=== PATIENT | male | born 1960 | race Caucasian/White ===

== ENCOUNTER 2017-01-24 11:40 | Emergency (ER) | payer OTHER ==
[~2017-01-24] VITALS: Ht 175.3 cm; Wt 90.7 kg
--- NOTE | ~2017-01-24 | EKG ---
[address] [place] [address] ELECTROCARDIOGRAM REPORT Name: MATTHEW ESCALANTE [id number] Admission: 01/24/17 Attend Phys: Discharge: 01/24/17 Date of : 64 Report #: [id number] THIS REPORT FOR: //name// [facility] ED Test Date: 2017-01-24 Test Time: 12:21:50 Pat Name: MATTHEW ESCALANTE Department: Room: Gender: M Weigher And Charger: [id number] : 1960 Requested By: Michoacano Coleman Order Number: [id number] MD: Kun Murillo Measurements Intervals [place] Rate: 80 P: 36 UT: 176 QRS: 54 QRSD: 91 T: 40 QT: 358 QTc: 413 Interpretive Statements Sinus rhythm Normal tracing No previous ECG available for comparison Electronically Signed On 01-25-2017 8:54:40 CDT by Kun Murillo [email or web address] <ELECTRONICALLY SIGNED> By: Kun Murillo MD, MERGED WITH [facility] 01/25/17 0854 1221 1221 Kun Murillo MD, FAC /EPI
[~2017-01-24 11:40] MED LIST: ASPIR 8181 M1 PO; ASPIR 8181 MG PO; COLACE100 MG PO; COREG6.25 MG PO; DILAUDID 2 MG TA2 MG PO; FLEXERIL PO; FLOMAX0.4 MG PO; HYDROCODONE-AP1 EAC6 PO; LISINOPRIL5 MG PO; MIRALAX17 GM PO; NEURONTIN 300300 M1 PO; NITROGLYCERIN0.4 MG SUBLING; NORVASC5 MG PO; PEPCID20 MG PO; PLAVIX 75 MG TA75 M1 PO; ZOCOR20 MG PO
[2017-01-24 13:42] LABS: HEMOGLOBIN 20.6 gm/dL (14.0-18.0); MANUAL DIFF YES; MCH 31.6 pg (26.0-34.0); MCHC 34.3 % (28.0-37.0); MCV 92.2 fL (80.0-100.0); RDW 13.6 % (10.5-14.5); WBC 2.7 thou/uL (4.0-11.0)
[2017-01-24 13:47] LABS: ATYPICAL LYMPHS 2 %; METAMYELOCYTES 1 %; TOTAL CELL COUNT 100
[2017-01-24 13:48] LABS: ANISOCYTOSIS SLIGHT; POLYCHROMASIA OCCASIONAL
[2017-01-24 13:52] LABS: ANION GAP 7 mmol/L (7-16); BUN 16 mg/dL (7-18); CHLORIDE 106 mmol/L (98-107); CO2 25 mmol/L (21-32); CREATININE 1.1 mg/dL (0.7-1.3); POTASSIUM 4.3 mmol/L (3.5-5.1); SODIUM 138 mmol/L (136-145)
[2017-01-24 13:53] LABS: ALBUMIN 3.7 g/dL (3.4-5.0); CALCIUM 9.1 mg/dL (8.5-10.1); GLUCOSE 121 mg/dL (74-106); TOTAL BILIRUBIN 0.3 mg/dL (<0.1-1.0); TOTAL PROTEIN 7.3 g/dL (6.4-8.2); TROPONIN-I < 0.04 ng/mL (<0.04-0.07)
[2017-01-24 13:54] LABS: ALKALINE PHOSPHATASE 80 U/L (46-116); SGOT 32 U/L (15-37); SGPT 44 U/L (30-65)
[2017-01-24 14:02] LABS: PLATELET COUNT 87 thou/uL (150-400)
[2017-01-24 14:15] LABS: URINE BILIRUBIN NEGATIVE (Negative); URINE BLOOD NEGATIVE (Negative); URINE COLOR YELLOW; URINE GLUCOSE-RANDOM* NEGATIVE (Negative); URINE KETONES NEGATIVE (Negative); URINE LEUKOCYTES-REFLEX NEGATIVE (Negative); URINE PROTEIN (DIPSTICK) NEGATIVE (Negative); URINE UROBILINOGEN 0.2 E.U./dl (0.2-1.0)
[2017-01-24] MEDS ORDERED: HYDROCODONE-AP1 EAC6 PO (15:17)
== END 2017-01-24 15:58 | disposition home or self-care (01) ==
LOC: ER 11:40
PROVIDERS: Physician Assistant
DX: D72.819 Decreased white blood cell count, unspecified (principal); R10.9 Unspecified abdominal pain; I25.2 Old myocardial infarction; I10 Essential (primary) hypertension; Z87.440 Personal history of urinary (tract) infections; Z96.0 Presence of urogenital implants; Z86.718 Personal history of other venous thrombosis and embolism; Z87.891 Personal history of nicotine dependence

== ENCOUNTER → 2018-10-09 | Outpatient (CLI) | payer OTHER ==
--- NOTE | 2018-10-09 11:32 | NUR ---
ACCESSED PT LEFT CHEST PORT WITH 1INCH NEEDLE FOR CT CONTRAST. USED STERILE PROCEDURE, GAINED BLOOD RETURN.
== END ==
LOC: CAT 10:38 → LABMALL 10:38 → CAT 14:38
DX: C34.90 Malignant neoplasm of unspecified part of unspecified bronchus or lung (principal); J84.10 Pulmonary fibrosis, unspecified; K76.9 Liver disease, unspecified; R59.0 Localized enlarged lymph nodes; N52.9 Male erectile dysfunction, unspecified; M79.10 Myalgia, unspecified site

== ENCOUNTER → 2018-12-10 | Outpatient (CLI) | payer OTHER | LOC: CAT 09:07 | DX: C34.90 Malignant neoplasm of unspecified part of unspecified bronchus or lung (principal); K42.9 Umbilical hernia without obstruction or gangrene; J98.11 Atelectasis; K76.0 Fatty (change of) liver, not elsewhere classified; K76.9 Liver disease, unspecified ==

== ENCOUNTER → 2018-12-31 | Outpatient (CLI) | payer OTHER | LOC: MRI 07:01 | DX: K76.9 Liver disease, unspecified (principal) ==

== ENCOUNTER → 2019-10-15 | Outpatient (CLI) | payer OTHER | LOC: LABMALL 11:08 | DX: I10 Essential (primary) hypertension (principal) ==

== ENCOUNTER → 2019-10-16 | Outpatient (CLI) | payer OTHER | LOC: CAT 09:20 | PROVIDERS: ATTEND Internal Medicine Hematology & Oncology | DX: C34.31 Malignant neoplasm of lower lobe, right bronchus or lung (principal); R91.1 Solitary pulmonary nodule; J98.4 Other disorders of lung ==

== ENCOUNTER → 2019-11-19 | Outpatient (CLI) | payer OTHER | LOC: MRI 11:18 → EDSTATUS 14:47 | PROVIDERS: ATTEND Internal Medicine Hematology & Oncology | DX: C34.90 Malignant neoplasm of unspecified part of unspecified bronchus or lung (principal); R93.5 Abnormal findings on diagnostic imaging of other abdominal regions, including retroperitoneum ==

== ENCOUNTER → 2019-11-26 | Outpatient (CLI) | payer OTHER ==
[~2019-11-26] VITALS: Ht 167.6 cm; Wt 97.2 kg
[~2019-11-26] MED LIST changes: +CEFDINIR300 MG PO; +LEXAPRO20 MG PO; +NORCO 7.5-3251 EACH PO; +OMEPRAZOLE 20 M20 M1 PO; +ONDANSETRON HCL8 MG PO; +OXYCODONE HCL 55 MG PO; +PLAVIX 75 MG TA75 MG PO; +PROAIR HFA8.5 GM INH; +ZYPREXA 10 MG T10 MG PO
[2019-11-26 09:13] LABS: ABSOLUTE NEUTROPHILS 3.2 thou/uL (1.4-8.2); BASOPHILS 1.2 % (0.0-2.0); EOSINOPHILS 1.8 % (0.0-3.0); HEMATOCRIT 42.4 % (42.0-52.0); LYMPHOCYTES 17.9 % (24.0-44.0); MCH 31.2 pg (26.0-34.0); MCHC 33.1 g/dL (28.0-37.0); MCV 94.4 fL (80.0-100.0); MONOCYTES 7.3 % (1.0-8.0); PLATELET COUNT 230 thou/uL (150-400); POLYS 71.8 % (36.0-66.0); RBC 4.49 mil/uL (4.50-6.00); RDW 14.4 % (10.5-14.5); WBC 4.5 thou/uL (4.0-11.0)
[2019-11-26 09:20] VITALS: BP 123/85
[2019-11-26 09:21] LABS: CALCIUM 8.7 mg/dL (8.5-10.1); CREATININE 1.2 mg/dL (0.7-1.3)
[2019-11-26 09:29] LABS: ALBUMIN 3.3 g/dL (3.4-5.0); MAGNESIUM 2.1 mg/dL (1.8-2.4); TOTAL BILIRUBIN 0.3 mg/dL (0.2-1.0); TOTAL PROTEIN 6.8 g/dL (6.4-8.2)
[2019-11-26 11:26] VITALS: BP 123/85
--- NOTE | 2019-11-26 14:30 | NUR ---
HERE FOR DAY 1, CYCLE 1 OF CHEMO FOR RECURRENT SMALL CELL LUNG CANCER. HAD THOROUGH TEACHING DONE WITH THE [facility] LEARNING TECHNOLOGIES SPECIALIST YESTERDAY VIA TELECONFERENCE. TEACHING REVIEWED, INFO GIVEN. PT DEMONSTRATES GOOD UNDERSTANDING. HAD SIMILAR CHEMO 2 YEARS AGO (CREDIT RISK MANAGER 16 AND ETOPOSIDE). THIS TIME TECENTRIQ IS ADDED. EMPHASIZED NEED TO WATCH FOR AND REPORT ANY SIDE EFFECTS ASSOCIATED WITH THIS NEW IMMUNOLOGIC DRUG WELL THE CHEMO DRUGS. PT HAS BEEN DYSPNEIC ON EXERTION WITH WET SOUNDING AUDIBLE BREATH SOUNDS WHEN EXERTED ALTHOUGH LUNGS HAVE ONLY FAINT CRACKES THROUGHOUT WHEN AUSCULTATED. NO OTHER CONCERNS NOTED. TOLERATED CHEMO ORDERED WITHOUT INCIDENT, NO S/S ANY REACTION OTHER THAN A TIGHTNESS FELT IN HIS HEAD FOR A SHORT WHILE WITH THE CYNVANTI IV PUSH. THIS FEELING DID PASS. FREQUENT TRIPS TO THE BATHROOM TO VOID WITH LARGE VOLUME OF FLUIDS GIVEN. PORT WAS ACCESSED PRIOR WITHOUT DIFFICULTY, HAD GOOD BLOOD RETURN THROUGHOUT AND LEFT ACCESSED FOR DAYS 2 AND 3. PT SCHEDULED TO RETURN AGAIN TOMORROW AT 1200 AND SAT AT 0900. DISMISSED IN STABLE CONDITION. PRECHEMO LABS WERE WNL AND FAXED TO DR. WYNNE.
== END ==
LOC: OPONC 08:28
PROVIDERS: ATTEND Internal Medicine Hematology & Oncology
DX: Z51.11 Encounter for antineoplastic chemotherapy (principal); C34.90 Malignant neoplasm of unspecified part of unspecified bronchus or lung; R94.6 Abnormal results of thyroid function studies; Z79.899 Other long term (current) drug therapy

== ENCOUNTER 2019-11-27 21:27 | Inpatient (IN) | payer OTHER ==
[~2019-11-27] VITALS: Ht 167.6 cm; Wt 72.6 kg
--- NOTE | ~2019-11-27 | EMS ---
[facility] [address] [place] [address] EMS Patient Care Report Name: MATTHEW ESCALANTE Room #: REG ELZA Conde#: [id number] Admission: 11/27/19 Attend Phys: Discharge: Date of : 64 Report #: [id number] THIS REPORT FOR: //name// Report Transmitted: 11/27/2019 23:01 EMS Care Summary [facility] MED-ACT Incident [id number] @ 11/27/2019 20:39 Incident Location [address] [place] [address] Patient MATTHEW ESCALANTE Male, 59 Years 1960 Patient Address [address] [place] [id number] Patient History Chronic Obstructive Pulmonary Disease (COPD),Lung Cancer, Patient Allergies No known allergies, Patient Medications Clopidogrel, Lexapro, Simvastatin, Chief Complaint Fall, ankle injury Disposition Transported No Lights/[place] Dispatch Reason Falls Transported To [facility] Narrative [id number] dispatched to above address for Falls, Code 2 response. Upon arrival we found a 59 year old male laying on the driveway. he stated he was walking down the stairs outside when he missed the last step. He began to fall and heard a "pop" in his right ankle. Pt's right ankle is swollen and bruised. He reports [facility] [address] [place] [address] EMS Patient Care Report Name: MATTHEW ESCALANTE Room #: REG Amaya#: [id number] Admission: 11/27/19 Attend Phys: Discharge: Date of : 64 Report #: [id number] that the foot was "dangling" when he tried to lift his leg. Pt is a cancer pt. He underwent chemo yesterday, today and is scheduled for tomorrow. Assessment, vitals, IV-20g inserted in left hand, 10mL saline flush, Fentanyl-100mcg IV for pain, 10mL saline flush, splint and ice pack placed on right ankle, pt put on scoop stretcher, lifted to cot, scoop removed, loaded in ambulance. Vitals and 4-lead monitored throughout transport. Fentanyl-50mcg IV for pain, 10mL saline flush. Pt transported to [facility] per his request. He arrived alert with stable vitals. Care transferred to RIDE OPERATOR in room 8. Initial Vitals @21:15P: 96,R: 18,SpO2: 95,SD Suspected: false @21:18P: 95,R: 18,BP: 121/76,Pain: 8/10,GCS: 15,SpO2: 96,Revised Trauma: 12, @20:48P: 95,R: 18,BP: 144/91,Pain: 10/10,GCS: 15,SpO2: 96,Revised Trauma: 12, Assessments @20:46MENTAL:No Abnormalities,SKIN:HEENT:Head/Face: No Abnormalities,Neck/Airway: No Abnormalities,LUNG SOUNDS:General: No Abnormalities,Left Upper: No Abnormalities,Right Upper: No Abnormalities,Left Lower: No Abnormalities,Right Lower: No Abnormalities,ABDOMEN:General: No Abnormalities,Left Upper: No Abnormalities,Right Upper: No Abnormalities,Left Lower: No Abnormalities,Right Lower: No Abnormalities,PELVIS//GI:No Abnormalities,EXTREMITIES:Right Leg: Other,Left Leg: Other,Left Arm: No Abnormalities,Right Arm: No Abnormalities,PULSE:NEURO:No Abnormalities, Impression Injury of Ankle Procedures @20:54Fentanyl - 100 Micrograms (mcg) - Intravenous (IV)Response: Improved@20:53Saline Lock 10cc (20 ga) Site: Hand-LeftResponse: UnchangedSucceeded@21:15Fentanyl - 50 Micrograms (mcg) - Intravenous (IV)Response: Improved@20:55Splint Fx/Disloc.Response: UnchangedSucceeded@20:55Ice PackResponse: ImprovedSucceeded@20:56Scoop StretcherResponse: Unchanged Timeline 20:37,Call Received 20:37,Psap Call 20:39,Dispatched 20:39,En Route 20:45,On Scene 20:46,At Patient 20:48,BP: 144/91 M,PULSE: 95,RR: 18 R,SPO2: 96 Ox,ETCO2: ,BG: ,PAIN: 10,GCS: [facility] [address] [place] [address] EMS Patient Care Report Name: MATTHEW ESCALANTE Room #: REG Amaya#: [id number] Admission: 11/27/19 Attend Phys: Discharge: Date of : 64 Report #: [id number] 15, 20:53,Saline Lock 10cc 20 ga Site: Hand-Left,Response: UnchangedSucceeded, 20:54,Fentanyl - 100 Micrograms (mcg) - Intravenous (IV),Response: Improved 20:55,Splint Fx/Disloc.,Response: UnchangedSucceeded, 20:55,Ice Pack,Response: ImprovedSucceeded, 20:56,Scoop Stretcher,Response: Unchanged 21:03,Depart Scene 21:15,Fentanyl - 50 Micrograms (mcg) - Intravenous (IV),Response: Improved 21:15,BP: / M,PULSE: 96,RR: 18 R,SPO2: 95 Ox,ETCO2: ,BG: ,PAIN: ,GCS: , 21:18,BP: 121/76 M,PULSE: 95,RR: 18 R,SPO2: 96 Ox,ETCO2: ,BG: ,PAIN: 8,GCS: 15, 21:20,At Destination 21:46,Call Closed Disclaimer v1.1 Copyright 2020 [employer] This EMS Care Summary contains data elements from the applicable legal record (which may be displayed differently). It is designed to provide pertinent information for the following purposes: continuity of care, clinical quality, and state data reporting. The complete legal record is available to ED staff and administrators of the receiving hospital in [employer] Patient Tracker. All data is provided "as is."
--- NOTE | ~2019-11-27 | O ---
[facility] [place] [address] OPERATIVE REPORT Name: MATTHEW ESCALANTE Room #: 447-P [facility] IN M.R.#: [id number] Admission: 11/28/19 Attend Phys: Monse Doss Discharge: Date of : 64 Report #: [id number] THIS REPORT FOR: cc: Nader Gibson MD, Neal A. MD Kneidel, Matthew T. MD ~ CC: Monse Gibson DATE OF SERVICE: 11/29/2019 PREOPERATIVE DIAGNOSIS: Left ankle trimalleolar fracture. POSTOPERATIVE DIAGNOSIS: Left ankle trimalleolar fracture. PROCEDURE: Open reduction and internal fixation of trimalleolar fracture with fixation of the posterior malleolar fracture. SURGEON: Dr. Barry Espinoza. FINANCIAL REPORT SERVICE SALES AGENT: Margaret Cassidy. ANESTHESIA: General. ESTIMATED BLOOD LOSS: Minimal. DRAINS: No drains. TOURNIQUET TIME: 45 minutes. DESCRIPTION OF PROCEDURE: The patient brought to the operating room where he was placed under general anesthesia. Once under adequate general anesthesia, his left lower extremity was prepped and draped in a sterile manner. The extremity was elevated, exsanguinated, tourniquet placed to 250 mmHg. A 10 cm incision over the lateral malleolus was then made. This was dissected down through the soft tissue to the fracture site, any hematoma was evacuated from the fracture site. There was some posterior comminution precluding a lag screw. Therefore, reduction was achieved with a bone reduction tenaculum and fixation achieved then with a 7-hole 1/3 tubular plate with 3 screws distal to the fracture and 3 screws proximal to the fracture site. Excellent fixation and alignment was achieved in this manner. We then proceeded medially and a 4 cm incision over the medial malleolar fracture was made. This was then dissected down through the soft tissue to the fracture site and hematoma was evacuated from the fracture site along with any soft tissue interposition. The fracture was then reduced with a bone reduction tenaculum and subsequently fixed with two 4.0 cannulated screws placed under fluoroscopic guidance. Excellent fixation [address] [address] OPERATIVE REPORT Name: MATTHEW ESCALANTE Room #: 447-P [facility] IN .R.#: [id number] Admission: 11/28/19 Attend Phys: Monse Doss Discharge: Date of : 64 Report #: [id number] and alignment was achieved as verified under fluoroscopy. Through the same incision, a bone reduction tenaculum was placed. To allow reduction of the posterior malleolar fracture a bone reduction tenaculum was placed and utilizing fluoroscopy for guidance, 2 anterior to posterior 4.0 cannulated screws were placed across the fracture site. Excellent reduction and alignment was achieved as verified under fluoroscopy. The wounds were then irrigated copiously and closed with 2-0 Vicryl in subcutaneous tissues and zainab were used for the skin. The wounds were dressed with Xeroform, 4 x 4s, and a sterile soft compressive dressing was placed. Tourniquet was let down at approximately 45 minutes. Toes were pink and warm with good capillary refill. There were no complications from the procedure. The patient tolerated the procedure well and went to the recovery room without incident. By: 0940 1011 Barry Espinoza MD /nt
--- NOTE | ~2019-11-27 | HC ---
[facility] [place] [address] CONSULTATION Name: MATTHEW ESCALANTE Room #: 210-P ADM IN M.R.#: [id number] Admission: 11/28/19 Attend Phys: Monse Doss Discharge: Date of : 64 Report #: [id number] THIS REPORT FOR: cc: Nader Gibson MD, Neal A. MD Al-Saurabh,Javier Lau MD ~ CC: Monse iGbson REASON FOR CONSULTATION: Acute kidney injury. REASON FOR PRESENTATION: Post-fall with a trimalleolar fracture. HISTORY OF PRESENT ILLNESS: This is a 59-year-old with past medical history of hypertension; hyperlipidemia; small lung cancer, recurrent. He is undergoing cisplatin, etoposide medical treatment. He presented after a fall and was found to have a trimalleolar fracture. He is not aware of any previous medical problems. On presentation, his creatinine was elevated. This mandated Nephrology consultation. The patient's creatinine in September of this year was actually 1.3. This has continued to rise and has gone up to 2.2 as of this morning. The patient does have history of kidney stones. He is currently being followed by Oncology. His most recent cisplatin was 3 days ago. He denies any urinary issues to suggest an obstruction. He is currently being evaluated by Oncological Service, Orthopedic Service. He is going to the OR today. I was consulted to manage his acute kidney injury. PAST MEDICAL HISTORY: 1. Small cell lung cancer post-chemotherapy. 2. Coronary artery disease. 3. Esophageal ulcer. 4. Shingles. 5. Kidney stones. 6. PE. 7. DVT. 8. Hyperlipidemia. PAST SURGICAL HISTORY: Right knee scoped. SOCIAL HISTORY: Denies drug or alcohol abuse. He is an ex-smoker. FAMILY HISTORY: Significant for coronary artery disease. No chronic kidney disease. ALLERGIES: None. MEDICATIONS: 1. Carvedilol. [facility] [address] [place] [address] CONSULTATION Name: AVAMATTHEW David Room #: 210-P [facility] IN [facility].#: [id number] Admission: 11/28/19 Attend Phys: Monse Doss Discharge: Date of : 64 Report #: [id number] 2. Simvastatin. 3. Aspirin. 4. Plavix. 5. Omeprazole. REVIEW OF SYSTEMS: GENERAL: No fever or chills. CARDIOVASCULAR: No chest pain or palpitation. PULMONARY: No cough or hemoptysis. GASTROINTESTINAL: No nausea or vomiting. GENITOURINARY: No frequency, no urgency. MUSCULOSKELETAL: As per the history of present illness. PHYSICAL EXAMINATION: VITAL SIGNS: Blood pressure is 144/82, pulse rate is 86. Temperature is 36.6. Respiratory rate is 16. HEAD AND NECK: No jugular venous distention. CHEST: No crackles. CARDIOVASCULAR: No rub detected. ABDOMEN: Soft, nontender. LOWER EXTREMITIES: Dressing applied over the right lower extremity from the foot all the way down to the ____ knee. LABORATORY DATA: Laboratory values reviewed. Most recent labs from yesterday, sodium is 140, potassium is 5.2, magnesium is 2.7, calcium is 8.1. White blood cell count is 12.5. COVID-19 is negative. ASSESSMENT AND PLAN: 1. Cisplatin-induced acute kidney injury. 2. Small cell lung cancer. 3. Hyperkalemia. 4. Hold on further cisplatin dosing. 5. Continue IV fluid. 6. Continue to monitor renal function. 7. Watch urine output. 8. We will continue to follow during his ____. By: 0823 0836 Javier Brenner MD /nt
[2019-11-27 21:29] VITALS: BP 121/74
[2019-11-27 21:50] VITALS: BP 95/54
[2019-11-27 23:52] LABS: HEMATOCRIT 38.7 % (42.0-52.0); MCH 31.8 pg (26.0-34.0); MCHC 33.7 g/dL (28.0-37.0); MCV 94.3 fL (80.0-100.0); RBC 4.1 mil/uL (4.50-6.00); RDW 14.9 % (10.5-14.5); WBC 11.7 thou/uL (4.0-11.0)
[2019-11-28] LABS: CALCIUM 8.1 mg/dL (8.5-10.1); CREATININE 1.8 mg/dL (0.7-1.3); POTASSIUM 4.9 mmol/L (3.5-5.1)
[2019-11-28 00:13] LABS: APTT 22.5 Seconds (24.5-32.8)
[2019-11-28 01:40] VITALS: BP 109/64
[2019-11-28 01:55] VITALS: BP 122/79
[2019-11-28 02:16] VITALS: BP 129/79
[2019-11-28 04:30] VITALS: BP 124/75
--- NOTE | 2019-11-28 04:33 | NUR ---
PT WAS ADMITTED TO THE UNIT FROM THE ER AT APPROX 0200 IN A STABLE CONDITION.ADMISSION HX,EDUCATION AND ASSESSMENT COMPLETED.PT'S R ANKLE WITH CAST COVERED WITH PATRICIA WRAP.PT NPO AT THIS TIME FOR A POSSIBLE SURGERY LATER IN THE DAY.ICE PACK TO HIS R ANKLE,ELEVATED WITH A PILLOW.PT STILL RECEIVING CHEMO TX,ON CHEMO PRECAUTIONS.PT RESTING ON HIS BED ATTHIS TIME.FALL PRECAUTIONS IN PLACE,CALL LIGHT WITHIN REACH.
[2019-11-28 08:49] LABS: HEMATOCRIT 39.6 % (42.0-52.0); HEMOGLOBIN 12.6 gm/dL (14.0-18.0); MCH 30.7 pg (26.0-34.0); MCHC 31.7 g/dL (28.0-37.0); MCV 96.8 fL (80.0-100.0); RBC 4.09 mil/uL (4.50-6.00); RDW 15.5 % (10.5-14.5); WBC 12.5 thou/uL (4.0-11.0)
[2019-11-28 08:59] LABS: CALCIUM 8.1 mg/dL (8.5-10.1); CREATININE 2.2 mg/dL (0.7-1.3); MAGNESIUM 2.7 mg/dL (1.8-2.4); POTASSIUM 5.2 mmol/L (3.5-5.1)
[2019-11-28 09:25] VITALS: BP 137/94
--- NOTE | 2019-11-28 09:30 | NUR ---
PT ADMITTED LAST EVENING FOR FX ANKLE, DUE FOR DAY #3 OF OUTPATIENT CHEMOTHERAPY TO BE ADMINISTERED BY THIS NURSE. ORTHO PA GAVE OK TO PROCEED TODAY WITH CHEMO, SURGERY PLANNED FOR TOMORROW. DR. WYNNE NOTIFIED AND GAVE OK TO PROCEED WITH DAY 3 OF CHEMO PLANNED, ORDERS ON CHART. HOSPITALIST NOTIFIED, SEEING PT AT THIS TIME. PHAMACY NOTIFIED; INPATIENT CHEMO APPROVED BY DIRECTOR. PT'S NURSE APPRISED AND STAFF GIVEN SAFE HANDLING EDUCATION WITH SAFE HANDLING PRECAUTIONS SIGN AND CART OUTSIDE PT'S ROOM. PT UPDATED ON PLAN AND IS AGREEABLE. WILL RETURN EARLY THIS AFTERNOON TO ADMINISTER.
[2019-11-28 13:16] VITALS: BP 147/85
--- NOTE | 2019-11-28 13:42 | NUR ---
DR. FRAZIER HERE NOW CONSULTING WITH PT. DAY #3 OF ETOPOSIDE STARTED AT THIS TIME VIA L WRIST PERIPHERAL IV SITE (NEW SITE STARTED IN THE NIGHT, PATENT, EXCELLENT BLOOD RETURN) PORT NO LONGER ACCESSED. SET TO INFUSE OVER 60 MIN. PREMEDS GIVEN.
--- NOTE | 2019-11-28 14:55 | NUR ---
COMPLETED ETOPOSIDE WITHOUT INCIDENT, FULL BAG INFUSED, IV SITE REMAINS PATENT. CHEMO INFUSION SET REMOVED, PT'S NURSE UPDATED THAT CHEMO COMPLETE AND ENTERED ROOM TO RESUME IV FLUIDS ORDERED (INTERRUPTED FOR ONE HOUR FOR CHEMO). PT LEFT IN STABLE CONDITION.
[2019-11-29] VITALS (8 sets, daily range): BP systolic 125–144; BP diastolic 75–93
--- NOTE | 2019-11-29 03:10 | NUR ---
ASSUMED PT CARE AT 1900. PT IS A&OX4 TONIGHT, VERY FRIENDLY. LUNG SOUNDS COURSE WITH CRACKLES AND WHEEZES. PAIN BEING MANAGED WITH IV PAIN MEDS, PT CALLS APPROPRIATELY. NPO SINCE MIDNIGHT. FLUIDS INFUSING PER ORDER. PT REFUSED GABAPENTIN, SAYS HE DOES NOT LIKE TO TAKE IT. NO COMPLAINTS AT THIS TIME, PT IS CURRENTLY RESTING IN BED WITH EYES CLOSED.
--- NOTE | 2019-11-29 10:44 | NUR ---
Assumed patient care at 0715. Vital signs stable, lung sounds coarse, ABD distended, BS x's 4. IV in left hand with Normal Saline at 100cc/hr. Patient was given Carvedilol with a sip of water. He was given Morphine 2mg per IV push at 0754 for severe right ankle pain. Patient left Unit for Surgery with Escort at 0810. Awaiting call from PACU.
[2019-11-29 10:45] LABS: BE(vivo) -6.1 mmol/L (-2 to +3); HCO3 24.2 mmol/L (22.0-26.0); PCO2 72.6 mmHg (35.0-45.0); PO2 225.3 mmHg (80.0-100.0); pH 7.141 (7.360-7.450); sO2 99.2 % (92.0-98.0)
[2019-11-29 12:37] LABS: BE(vivo) -4.8 mmol/L (-2 to +3); HCO3 20.6 mmol/L (22.0-26.0); PO2 81.4 mmHg (80.0-100.0); sO2 95.4 % (92.0-98.0)
--- NOTE | 2019-11-29 18:09 | NUR ---
PT TRANSFERED FROM [address] [place] [address]. HAD LEFT LEG SURGERY TODAY. CMS INTACT ON THE LEFT LEG. VSS. PT HAS BEEN SLEEPING ON AND OFF. CONTINOUS PULSE OX IN PLACE. SAT ABOVE 90'S ON 2L. DENIES HAVING PAIN. NO CONCERNS AT THIS TIME. WILL CONTINUE TO MONITOR.
[2019-11-30] VITALS: BP 121/84
--- NOTE | 2019-11-30 04:38 | NUR ---
ASSUMED PT CARE AT 1900, PT IS AWAKE, ALERT AND ORIENTEDX4, SR ON THE MONITOR, ASSESSMENTS CHARTED, CAST IN PLACE TO THE RIGHT LEG, NO NUMBNESS OR TINGLING REPORTED, C/O PAIN ON THE RIGHT LE, MEDICATION GIVEN WITH RELIEF REPORTED, MEDICATION ADMINISTERED PER JUL, VSS, O2 ON 2L NC, O2 SATS STABLE WILL CONTINUE TO MONITOR
[2019-11-30 05:31] VITALS: BP 121/85
[2019-11-30 08:42] LABS: HEMATOCRIT 36.3 % (42.0-52.0); HEMOGLOBIN 12.2 gm/dL (14.0-18.0); MCHC 33.6 g/dL (28.0-37.0); MCV 95.2 fL (80.0-100.0); RBC 3.81 mil/uL (4.50-6.00); RDW 14.5 % (10.5-14.5); WBC 6.3 thou/uL (4.0-11.0)
--- NOTE | 2019-11-30 08:51 | EKG ---
[facility] [address] [place] [address] ELECTROCARDIOGRAM REPORT Name: MATTHEW ESCALANTE Room #: 210-P ADM IN M.R.#: [id number] Admission: 11/28/19 Attend Phys: Nader Gibson MD Discharge: Date of : 64 Report #: [id number] THIS REPORT FOR: cc: Nader Gibson MD, Neal A. 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: [place] : 1960 Requested By: Ritika Zendejas Order Number: [id number] MD: Kun Murillo Measurements Intervals [place] Rate: 90 P: 39 [place]: 158 QRS: 61 QRSD: 85 T: 55 QT: 345 QTc: 422 Interpretive Statements Sinus rhythm Minimal diffuse ST segment elevation, consider early repolarization, pericarditis, or injury Baseline wander in lead(s) V2 Compared to ECG 01/24/2017 12:21:50 ST (T wave) deviation now present Electronically Signed On 11-30-2019 8:51:21 CDT by Kun Murillo [email or web address] <ELECTRONICALLY SIGNED> By: Kun Murillo MD, [facility] 11/30/19 0851 [id number] [id number] Kun Murillo MD, [facility] /EPI
[2019-11-30 09:02] LABS: ALBUMIN 3.1 g/dL (3.4-5.0); CALCIUM 8.2 mg/dL (8.5-10.1); CREATININE 1.3 mg/dL (0.7-1.3); MAGNESIUM 2.4 mg/dL (1.8-2.4); POTASSIUM 4.1 mmol/L (3.5-5.1); TOTAL BILIRUBIN 0.6 mg/dL (0.2-1.0); TOTAL PROTEIN 6.3 g/dL (6.4-8.2)
[2019-11-30 10:18] VITALS: BP 131/62
[2019-11-30] MEDS ORDERED: NORCO 7.5-3251 EACH PO (10:42)
--- NOTE | 2019-11-30 11:20 | NUR ---
ASSESSMENT CHARTED. PT ALERT AND ORIENTED. VSS. EVALUATED BY PT. CAST ON RIGHT LEG IN PLACE. CMS INTACT ON RIGHT LEG. SEEN BY DR. HORNE. ORDERS GIVEN TO DISCHARGE PT TO HOME. DISCHARGE INSTRUCTIONS GIVEN TO PT. PT VERBERLISED UNDERSTANDING.
--- NOTE | 2019-11-30 17:19 | NUR ---
Patient to dc home today with crutches. sp with therapy patient interested in purchasing a scooter. Gave patient information on rental/purchase of knee scooter. Patient admitted with Barbara maloney, He reports he is retired. he has current lung cancer and rec treatment as well. Patient wants to purchase a scooter so he can adapt it to be more comfortable. 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 Plan dc patient has information regarding scooter.
== END 2019-11-30 11:50 | disposition home or self-care (01) | DRG 492 ==
LOC: ER 21:27 → EROBS 11-28 00:57 → 2N 11-28 00:57 → EROBS 11-28 02:12 → 4S 11-28 02:47 → 2N 11-29 13:18
PROVIDERS: Emergency Medicine; Hospitalist; Internal Medicine; Nurse Practitioner Family; ADMIT Family Medicine; ATTEND Family Medicine
PROC: 2W3QX1Z Immobilization of Right Lower Leg using Splint (ICD-10-PCS; principal; 2019-11-28)
PROC: 3E0T3BZ Introduction of Anesthetic Agent into Peripheral Nerves and Plexi, Percutaneous Approach (ICD-10-PCS; 2019-11-29)
PROC: 0QSG04Z Reposition Right Tibia with Internal Fixation Device, Open Approach (ICD-10-PCS; 2019-11-29)
DX: S82.851A Displaced trimalleolar fracture of right lower leg, initial encounter for closed fracture (principal); J96.01 Acute respiratory failure with hypoxia; N17.9 Acute kidney failure, unspecified; C34.90 Malignant neoplasm of unspecified part of unspecified bronchus or lung; J81.1 Chronic pulmonary edema; E78.5 Hyperlipidemia, unspecified; I25.10 Atherosclerotic heart disease of native coronary artery without angina pectoris; G89.29 Other chronic pain; N40.0 Benign prostatic hyperplasia without lower urinary tract symptoms; T45.1X5A Adverse effect of antineoplastic and immunosuppressive drugs, initial encounter; J44.9 Chronic obstructive pulmonary disease, unspecified; M54.5 Low back pain; I10 Essential (primary) hypertension; E66.01 Morbid (severe) obesity due to excess calories; W10.8XXA Fall (on) (from) other stairs and steps, initial encounter; Y93.89 Activity, other specified; I25.2 Old myocardial infarction; Z87.891 Personal history of nicotine dependence; Z92.3 Personal history of irradiation; Z92.21 Personal history of antineoplastic chemotherapy; Z79.899 Other long term (current) drug therapy; Z79.82 Long term (current) use of aspirin; Z86.711 Personal history of pulmonary embolism; Z86.718 Personal history of other venous thrombosis and embolism; Z87.01 Personal history of pneumonia (recurrent); Z87.442 Personal history of urinary calculi; Y92.89 Other specified places as the place of occurrence of the external cause; Y99.8 Other external cause status; Z68.25 Body mass index [BMI] 25.0-25.9, adult; Z03.818 Encounter for observation for suspected exposure to other biological agents ruled out
CPT/HCPCS: 10081; 10195; 50101; 50341; 50343; 50386; 51122; 51131; 51277; 51412; 56524; 56525; 56667; 57091; 57180; 62110; 62900; 64039; 64043; 65131; 70005

== ENCOUNTER → 2019-11-27 | Outpatient (CLI) | payer OTHER ==
[~2019-11-27] VITALS: Ht 167.6 cm; Wt 97.2 kg
[~2019-11-27] MED LIST changes: -CEFDINIR300 MG PO; -NORCO 7.5-3251 EACH PO; -OXYCODONE HCL 55 MG PO
[2019-11-27 11:41] VITALS: BP 132/78
--- NOTE | 2019-11-27 12:12 | NUR ---
IN FOR DAY #2 OF CYCLE 1 CHEMOTHERAPY FOR SMALL CELL LUNG CA. PATIENT DENIED NAUSEA, FEVER, CHILLS. STATED HAD TROUBLE SLEEPING LAST NIGHT. IS PROBABLY FROM HIGH DOSE DECADRON. RECEIVED GOOD BLOOD RETURN FROM PORTACATH. DAY 2 ETOPOSIDE INFUSED WITH FILTER OVER 1 HOUR AND TOLERATED WELL. PORTACATH FLUSHED AND DEACCESSED. DISMISSED IN GOOD CONDITION. TO RETURN TOMORROW MORNING FOR DAY#3.
== END ==
LOC: OPONC 09:51
PROVIDERS: ATTEND Family Medicine
DX: Z51.11 Encounter for antineoplastic chemotherapy (principal); C34.90 Malignant neoplasm of unspecified part of unspecified bronchus or lung

== ENCOUNTER → 2019-12-01 | Outpatient (CLI) | payer OTHER ==
[~2019-12-01] MED LIST changes: +NORCO 7.5-3251 EACH PO
[2019-12-01 15:50] VITALS: BP 130/99
--- NOTE | 2019-12-01 15:50 | NUR ---
HERE FOR NEULASTA, DAY 6 OF THIS FIRST ROUND OF CHEMO. PT JUST DISMISSED FROM THE HOSPITAL YESTERDAY S/P FALL, FX R ANKLE/FOOT AND SURGERY. RT LOWER LEG/FOOT IN CAST. PT REPORTS PAIN BUT STATES IS MANAGING. DENIES N/V, FEVER/CHILLS. DISCUSSED ROLE OF NEULASTA IN SUPPORTING WBC'S AND INFECTION PREVENTION JUAN WITH THE RECENT SURGERY. PT AND VERBALIZE UNDERSTANDING. PT WILL RETURN AGAIN ON DEL FOR LABS THEN SEES THE DIGITAL MARKETING LEAD AT [facility] FOR F/U ON SATURDAY. DISMISSED POST INJECTION IN STABLE CONDITION. EMPHASIZED SAFETY AND FALL PREVENTION AT HOME.
== END ==
LOC: OPONC 11-28 10:41
PROVIDERS: ATTEND Internal Medicine Hematology & Oncology
DX: C34.90 Malignant neoplasm of unspecified part of unspecified bronchus or lung (principal)
CPT/HCPCS: 95112

== ENCOUNTER → 2019-12-02 | Outpatient (CLI) | payer OTHER ==
[~2019-12-02] MED LIST changes: +CEFDINIR300 MG PO; +CISPLATIN IV; +ETOPOPHOS100 MG IV; +NORCO 5-325 TA1 EAC2 PO; +OLANZAPINE10 M1 PO; +OXYCODONE HCL 55 MG PO; +TECENTRIQ1200 MG/20 IV
== END ==
LOC: LAB 10:04
PROVIDERS: ATTEND Nurse Practitioner
DX: C34.90 Malignant neoplasm of unspecified part of unspecified bronchus or lung (principal); R06.02 Shortness of breath

== ENCOUNTER → 2019-12-03 | Outpatient (CLI) | payer OTHER ==
[2019-12-03 13:50] VITALS: BP 117/78
[2019-12-03 14:45] LABS: CALCIUM 8.8 mg/dL (8.5-10.1); CREATININE 1.2 mg/dL (0.7-1.3); POTASSIUM 4.1 mmol/L (3.5-5.1); TOTAL BILIRUBIN 0.9 mg/dL (0.2-1.0); TOTAL PROTEIN 7.2 g/dL (6.4-8.2)
[2019-12-03 15:04] LABS: HEMATOCRIT 39.3 % (42.0-52.0); HEMOGLOBIN 13.1 gm/dL (14.0-18.0); MCH 31.5 pg (26.0-34.0); MCHC 33.3 g/dL (28.0-37.0); MCV 94.7 fL (80.0-100.0); PLATELET COUNT 136 thou/uL (150-400); RBC 4.15 mil/uL (4.50-6.00); RDW 14.8 % (10.5-14.5); WBC 2.3 thou/uL (4.0-11.0)
[2019-12-03 15:26] LABS: ABSOLUTE NEUTROPHILS 1.5 thou/uL (1.4-8.2); ANISOCYTOSIS 1+
--- NOTE | 2019-12-03 15:42 | NUR ---
IN FOR LAB DRAW 1 WEEK POST CHEMOTHERAPY. PATIENT STATED HE FELT GOOD. DENIED NAUSEA/VOMITING, FEVER/CHILLS. SOB NOTED WITH EXERTION. O2 SAT 95% ON RA AT REST. LEFT UPPER AND LOWER LOBES OF LUNGS CLEAR. RONCHI HEARD IN RIGHT LOWER LOBE WITH MILD WHEEZING IN RIGHTUPPER LOBE. USING KNEE WALKER. CAST TO LEG CLEAN, DRY, INTACT. TO RETURN IN ONE WEEK FOR LABS. DISMISSED IN STABLE CONDITION.
== END ==
LOC: OPONC 08:26
PROVIDERS: ATTEND Internal Medicine Hematology & Oncology
DX: C34.90 Malignant neoplasm of unspecified part of unspecified bronchus or lung (principal)

== ENCOUNTER 2019-12-07 15:17 | Inpatient (IN) | payer OTHER ==
[~2019-12-07] VITALS: Ht 167.6 cm; Wt 100.2 kg
[~2019-12-07 15:17] MED LIST changes: -CEFDINIR300 MG PO; -CISPLATIN IV; -ETOPOPHOS100 MG IV; -NORCO 5-325 TA1 EAC2 PO; -OLANZAPINE10 M1 PO; -OXYCODONE HCL 55 MG PO; -TECENTRIQ1200 MG/20 IV
[2019-12-07 15:22] VITALS: BP 111/85
[2019-12-07 16:29] LABS: HEMOGLOBIN 12.5 gm/dL (14.0-18.0); MCV 94.4 fL (80.0-100.0)
[2019-12-07 16:30] LABS: CREATININE 1.4 mg/dL (0.7-1.3); POTASSIUM 4.9 mmol/L (3.5-5.1)
[2019-12-07 16:31] LABS: HEMATOCRIT 37.7 % (42.0-52.0); MCH 31.3 pg (26.0-34.0); MCHC 33.2 g/dL (28.0-37.0); RDW 14.8 % (10.5-14.5); WBC 4.1 thou/uL (4.0-11.0)
[2019-12-07 16:38] LABS: ALBUMIN 2.9 g/dL (3.4-5.0); TOTAL BILIRUBIN 0.6 mg/dL (0.2-1.0); TOTAL PROTEIN 7.4 g/dL (6.4-8.2)
[2019-12-07 17:11] LABS: ABSOLUTE NEUTROPHILS 2.7 thou/uL (1.4-8.2); ANISOCYTOSIS 1+; NUCLEATED RBCS 2 /100WBC
[2019-12-07 17:12] LABS: POLYCHROMASIA SLIGHT
[2019-12-07 17:20] LABS: PLATELET COUNT 99 thou/uL (150-400)
[2019-12-07 18:01] LABS: URINE BILIRUBIN NEGATIVE (Negative); URINE BLOOD TRACE (Negative); URINE CLARITY CLEAR; URINE COLOR YELLOW; URINE GLUCOSE-RANDOM* NEGATIVE (Negative); URINE KETONES NEGATIVE (Negative); URINE LEUKOCYTES-REFLEX NEGATIVE (Negative); URINE NITRITE-REFLEX NEGATIVE (Negative); URINE PROTEIN (DIPSTICK) NEGATIVE (Negative); URINE SPECIFIC GRAVITY 1.025 (1.005-1.035)
[2019-12-07 23:56] VITALS: BP 136/83
[2019-12-08] VITALS (7 sets, daily range): BP systolic 126–162; BP diastolic 79–93
[2019-12-08 08:26] LABS: HEMATOCRIT 32.4 % (42.0-52.0); MCHC 33.8 g/dL (28.0-37.0); MCV 94.6 fL (80.0-100.0); RBC 3.43 mil/uL (4.50-6.00); WBC 5.5 thou/uL (4.0-11.0)
[2019-12-08 08:37] LABS: CALCIUM 8.4 mg/dL (8.5-10.1); CREATININE 1.2 mg/dL (0.7-1.3); POTASSIUM 4.1 mmol/L (3.5-5.1)
--- NOTE | 2019-12-08 09:41 | NUR ---
PT ADMITTED FROM ER AT APPROXIMATELY 0130. VSS .LOW GRADE TEMP. UNLABORED ON RA. LUNGS SOUND COARSE. HYDROCODONE GIVEN FOR C/O RIGHT LE PAIN. NS STARTED AT 126 ML HR ORDERED. ORIENTED PT TO RM .INSTRUCTED PT ON FALL PRECAUTIONS. HE HAD A FALL RECENTLY WHICH RESULTED IN RLE FX. COVID SWAB OBTAINED IN ER.
[2019-12-08] MEDS ORDERED: ASPIR 8181 M1 PO (11:12)
--- OUTSIDE RECORDS SUMMARY | 2019-12-08 14:21 | XMS REPORT | Summary of Care ---
Demographics + + + | Address | [address] | | | [place] [address] | + + + | Home Phone | | + + + | Preferred Language | Unknown | + + + | Marital Status | | + + + | Baptism Affiliation | Unknown | + + + | Race | White | + + + | Ethnic Group | Not or | + + + Author + + + | Author | [facility] | + + + | Organization | [facility] | + + + | Address | Unknown | + + + | Phone | Unavailable | + + + Support + + +---------+ + | Name | Relationship | Address | Phone | + + +---------+ + | Marlin | ECON | Unknown | | | Angelique | | | | + + +---------+ + Care Team Providers + +------+ + | Care Product Accountant Name | Role | Phone | + +------+ + | Pavel Medina LEAD CLINICAL RESEARCH COORDINATOR | PCP | | + +------+ + Encounter Details +------+---------+ + + + | Date | Type | Department | Care Team | Description | +------+---------+ + + + | 07/2 | Letter | [place] | Pavel Medina, | | | 06/08 | (Out) | Family [facility] | LEAD CLINICAL RESEARCH COORDINATOR [place] | | | [address] | | [address] | [facility] | | | | | [address] | [address] | | | | | [address] | [address] | | | | | [place] [address] | Drive, [address] | | | | | [phone] | [place], | | | | | | [place] [address] | | | | | | [phone] | | | | | | [phone] | | | | | | (Fax) | | +------+---------+ + + + Allergies + + +---------+--------+ + | Active Allergy | Reactions | Severit | Noted | Comments | | | | y | Date | | + + +---------+--------+ + | Aspirin | | | 09/16/ | | | | | | 2014 | | + + +---------+--------+ + | Influenza | | | 09/26/ | | | Vaccines | | | 2018 | | + + +---------+--------+ + | Wasp Venom | | | 09/16/ | | | Protein | | | 2014 | | + + +---------+--------+ + documented as of this encounter (statuses as of 12/08/2019) Medications + + +---------+--------+-----+-----+------+ | Medication | Sig | Dispens | Refill | Sta | End | Stat | | | | ed | s | rt | | us | | | | | | Ross | Ross | | | | | | | e | e | | + + +---------+--------+-----+-----+------+ | aspirin EC 81 | Take 81 mg by | | 0 | | | Acti | | MG tablet | mouth daily. | | | | | ve | + + +---------+--------+-----+-----+------+ | albuterol | INL 2 PFS PO Q 4 | | 0 | 06/ | | Acti | | (PROAIR HFA) 108 | TO 6 H PRN | | | 12/ | | ve | | (90 Base) | | | | 201 | | | | MCG/ACT inhaler | | | | 8 | | | + + +---------+--------+-----+-----+------+ | omeprazole | Take 1 capsule | 90 | 3 | 06/ | | Acti | | (PriLOSEC) 20 MG | (20 mg total) by | capsule | | 03/ | | ve | | capsule | mouth daily. | | | 201 | | | | | | | | 9 | | | + + +---------+--------+-----+-----+------+ | traZODone | Take 1 tablet | 90 | 3 | 06/ | | Acti | | (DESYREL) 100 MG | (100 mg total) | tablet | | 21/ | | ve | | tablet | by mouth | | | 201 | | | | | nightly. | | | 9 | | | + + +---------+--------+-----+-----+------+ | simvastatin | TAKE 1 TABLET | 90 | 1 | 04/ | 04/ | Acti | | (ZOCOR) 20 MG | (20 MG TOTAL) BY | tablet | | 16/ | 16/ | ve | | tablet | MOUTH DAILY | | | 202 | 202 | | | | | | | 0 | 1 | | + + +---------+--------+-----+-----+------+ | clopidogrel | TAKE 1 TABLET | 90 | 1 | 04/ | 04/ | Acti | | (PLAVIX) 75 MG | (75 MG TOTAL) BY | tablet | | 16/ | 16/ | ve | | tablet | MOUTH DAILY | | | 202 | 202 | | | | | | | 0 | 1 | | + + +---------+--------+-----+-----+------+ | carvedilol | TAKE 1 TABLET | 180 | 1 | 04/ | 04/ | Acti | | (COREG) 6.25 MG | (6.25 MG TOTAL) | tablet | | 16/ | 16/ | ve | | tablet | BY MOUTH 2 (TWO) | | | 202 | 202 | | | | TIMES A DAY | | | 0 | 1 | | + + +---------+--------+-----+-----+------+ | | take 1-2 tablet | | 0 | | | Acti | | HYDROcodone-acet | by oral route | | | | | ve | | aminophen | every 4 hours as | | | | | | | (NORCO) 5-325 MG | needed for pain | | | | | | | per tablet | | | | | | | + + +---------+--------+-----+-----+------+ documented as of this encounter (statuses as of 12/08/2019) Active Problems + + | Patient Care Coordination Note | + + | His works here | + + + + + | Problem | Noted Date | + + + | Depression | 05/28/2018 | + + + | Chemotherapy induced nausea and vomiting | 02/04/2018 | + + + | C. difficile colitis | 01/16/2018 | + + + + + | Overview: Last Assessment & Plan: C. difficile | | positive on PCR.Explains some of his symptoms.See if | | oncology wants to start Neulasta.Vancomycin orally | | started 01/16.Monitor stool output, oral intake | | closely.Hospital stay duration based on trends.Making | | progress day today. Possible discharge 01/18 if he | | can string the other a couple of good days and | | oncology is okay with him going home with such | | neutropenia. | + + + + + | Bicytopenia | 01/15/2018 | + + + + + | Overview: Last Assessment & Plan: Leukopenia and | | anemia, likely from chemo. Monitor.Given acute | | infection, see if oncology wants to try G-CSF. | |Given acute infection, see if oncology wants to try G-CSF. | + + + + + | Dysphagia | 01/15/2018 | + + + + + | Overview: Last Assessment & Plan: | | From radiation. 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 Continue IVF hydration | | Treating nasuea, vomiting | + + + + + | CAD (coronary artery disease) | 11/30/2017 | + + + + + | Overview: Last Assessment & Plan: | | Continue antiplatelet agents | + + + + + | Postobstructive pneumonia | 11/30/2017 | + + + + + | Overview: Last Assessment & Plan: CT chest: | | pleural effusion resolved and postobstructive area | | looks slightly improved, symptoms may be related to | | inflammationWill continue with broad spectrum | | antibiotics, de-escalate when ableSteroids added on | | 12/01 by oncologyDiscussed with nursing staff | + + + + + | Small cell lung cancer | 11/06/2017 | + + + + + | Overview: Last Assessment & Plan: [facility] Small cell | | lung cancer, limited stage recently completed | | radiation on 01/10/18, and cycle 3 chemo (Cisplatin | | and Etoposide) on 01/10/18. Oncology Consulted. | | Assistance appreciated. | + + documented as of this encounter (statuses as of 12/08/2019) Social History + +-------+---------+--------+------+ | Tobacco Use | Types | Packs/D | Years | Date | | | | ay | Used | | + +-------+---------+--------+------+ | Former Smoker | | | | | + +-------+---------+--------+------+ + +---+---+---+ | Smokeless | | | | | Tobacco: Never | | | | | Used | | | | + +---+---+---+ + + +---------+ + | Alcohol Use | Drinks/Week | oz/Week | Comments | + + +---------+ + | No | | | | + + +---------+ + + + + | Sex Assigned at | Date Recorded | | | | + + + | Not on file | | + + + + + + + | Job Start Date | Occupation | Industry | + + + + | Not on file | Not on file | Not on file | + + + + + + + + | Travel History | Travel Start | Travel End | + + + + + + | No recent travel history | | available. | + + documented as of this encounter Last Filed Vital Signs Not on filedocumented in this encounter Plan of Treatment + +---------+ + + | Health | Due | Last Done | Comments | | Maintenance | Date | | | + +---------+ + + | INFLUENZA | | | | | VACCINE | 020 | | | + +---------+ + + | COLONOSCOPY | | 04/19/2017 | | | | 027 | | | + +---------+ + + documented as of this encounter Results Not on filedocumented in this encounter Insurance + +------+ +------+-------+ +------+ | Payer | Bene | Subscrib | Effe | Phone | Address | Type | | | fit | er ID | ctiv | | | | | | Plan | | e | | | | | | / | | Date | | | | | | Grou | | s | | | | | | p | | | | | | + +------+ +------+-------+ +------+ | ELIZABETH | DOMINGO | [phone] | 05/20/ | | [address] | | COMMERCIAL | AN | [phone] | 2019 | | [phone] | | | | PRIM | | -Pre | | [place] | | | | E | | sent | | , [place] | | | | EMPL | | | | [id number] | | | | [employer] | | | | | | | | 'S | | | | | | | | EPO | | | | | | + +------+ +------+-------+ +------+ documented as of this encounter"
--- NOTE | 2019-12-08 17:00 | NUR ---
ASSUMED PATIENT CARE THIS SHIFT AT APPROXIMATELY 0700. PATIENT AWAKE ALERT ORIENTED THROUGHOUT SHIFT. NO S/S OF RESPIRATORY DISTRESS NOTED. PATIENT O2 SAT STABLE ON ROOM AIR. ORTHO AND ONCOLOGY CONSULT CALLED THIS SHIFT. SPOKE WITH LENS BLOCK GAUGER WITH [facility], STATES THEY WILL NOT SEE PATIENT UNTIL CLEARED FOR COVID. NO PLANS TO CUT OFF CAST, XRAY AND US TO RIGHT LEG THAT WAS DONE TODAY ARE NEGATIVE AND NO INTERVENTIONS NEEDED AT THIS TIME. RELAYED THIS INFO TO PATIENT AND COMMUNICATES UNDERSTANDING OF PLAN. PAIN MANAGED WITH NORCO PO X2 DOSES THIS SHIFT. TOLERATING DIET WITHOUT NAUSEA. NO FEVERS NOTED THIS SHIFT. AWAITING COVID RESULT, POSSIBLY WILL NOT RESULT UNTIL TOMORROW AM AND PATIENT AWARE.
--- NOTE | 2019-12-08 17:37 | NUR ---
INITIAL ASSESSMENT: Received consult for discharge planning. SW reviewed chart and spoke with nursing. Pt was admitted from home due to cough/dyspnea. Pt placed in Enhanced Isolation to r/o COVID-19. Pt's test is currently pending. Pt with hx of lung cancer with recent round of chemo. Pt had recent right foot fracture. Onc and ortho both consulted. SW placed call to pt's room. No answer. Per chart, pt is alert/orientated and lives at home with his . Pt has crutches from recent fracture. Pt is currently on IV abx. SW will follow up with pt at a later time. SW is following to assist as needed with discharge planning.
--- NOTE | 2019-12-08 18:41 | NUR ---
PAGED DR. HORNE TO CLARIFY DOSE OF LOVENOX, PATIENT PLT COUNT LOW AT 77, STATES THAT HE WOULD LIKE FOR PATIENT TO RECIEVE DOSE TONIGHT BECAUSE HE IS AT HIGH RISK FOR DVT, AND WILL REEVAL IN AM IF MED IS STILL NEEDED
--- NOTE | 2019-12-09 00:21 | NUR ---
ASSUMED CARE FOR THIS PT AT 1900, UPON INITIAL ASSESSMENT PT'S LUNG SOUNDS WERE COARSE THROUGHOUT, WHEN SPEAKING WITH THE PATIENT, PT HAD NO C/O PAIN, OR SOA AT THE TIME. LATER IN THE EVENING HYDROCODONE WAS PROVIDED PER PX OF 10/27. R LEG HAS GOOD CIRCULATION, CAP REFILL AT THE R GREAT TOE LESS THAN THREE SECONDS EVERY ASSSESSMENT. WARMTH SAME ABOVE THE KNEE SITE ON CAST. GOOD URINE OUTPUT SO FAR. WILL CONTINUE TO MONITOR FOR CHANGES IN STATUS.
[2019-12-09 05:20] VITALS: BP 133/87
[2019-12-09 07:26] VITALS: BP 157/96
--- NOTE | 2019-12-09 10:11 | NUR ---
COVID RESULT NEGATIVE THIS AM. CALLED ANAHI WEBSTER TO MAKE AWARE, STATES TO D/C PRECAUTIONS. CALLED DR. HORNE TO MAKE AWARE. AWAITING CALL BACK.
[2019-12-09 11:07] VITALS: BP 153/91
--- NOTE | 2019-12-09 15:10 | NUR ---
dr. dawkins called back, aware of negative result of covid, states to leave patient in CCTele status and ok with him to move off unit. powerhouse electrician aware and awaiting bed for transfer off unit.
[2019-12-09 15:19] VITALS: BP 172/85
--- NOTE | 2019-12-09 15:38 | NUR ---
patient blood pressure elevated at 172/85. called dr. dawkins for orders,see new orders for norvasc po now and daily
--- NOTE | 2019-12-09 16:11 | NUR ---
SW reviewed chart and spoke with nursing. Pt in Enhanced Isolation to r/o COVID-19. Test did come back negative. Pt is afebrile and not on O2. Pt is on IV abx. SW spoke with pt via phone. Introduced role of SW. Pt is alert/orientated x 4 and confirms he lives at home with his . 2 steps to enter their home. No steps inside. Pt states he was able to purchase a knee scooter for $50 online. Pt states his plan is to discharge home when medically stable. Pt does not anticipate having any discharge needs. SW is following to assist as needed with discharge planning.
--- NOTE | 2019-12-09 16:28 | NUR ---
ASSUMED PATIENT CARE THIS MORNING AT APPROXIMATELY 0700. MEDS AND ASSESSMENTS CHARTED. PATIENT WITH NO ACUTE RESPIRATORY DISTRESS NOTED THIS SHIFT, REMAINS ON ROOM AIR. BP ELEVATED BUT ALL OTHER VSS. MEDICATION ADDED BY MD FOR ELEVATED BP THIS SHIFT. PATIENT HAS TAKEN NORVASC BEFORE AND AWARE OF MEDICATION INDICATIONS AND SIDE EFFECTS. COVID RESULTED NEGATIVE X1. ROOF TECHNICIAN AND ID MD STATES NO NEED FOR REPEAT COVID TEST. PATIENT ASYMPTOMATIC. NO FEVERS THIS SHIFT. ISOLATION D/C'D THIS SHIFT. PATIENT TO BE MOVED TO [facility] WHEN ROOM AVALIABLE.
[2019-12-09 19:36] VITALS: BP 128/81
--- NOTE | 2019-12-09 22:12 | NUR ---
PT IS PLEASANT, NO SPECIFIC CONCERNS FROM THE PATIENT AT THIS TIME. PT'S R ANKLE CAST WAS ASSESSED BY THE RN, THE TEMPERATURE IS WARM TO THE TOUCH, CAPILLARY REFILL IS LESS THAN 3 SECONDS. LUNG SOUNDS ARE STILL COARSE WHICH IS RELATED TO THE LUNG CA, PT IS STILL AOX4. RN REQUESTED THAT PT REPORT ANY ABNORMALITIES OR CHANGES AND ASKED IF THERE WERE ANY CONCERNING CHANGES. PT STATED THAT THE GREATEST ISSUE FOR HIM RIGHT NOW IS THE BLOOD PRESSURE. AT THE FIRST VS CHECK THE PT'S BLOOD PRESSURE WAS IN THE 120s. NO OTHER CONCERNS FOR THE PT. BLOOD SUGAR WAS HIGH BUT WAS TREATED AND TEACHING FOR HYPOGLYCEMIA WAS GIVEN AND WAS ALERTED TO THE PT TO CALL OUT IF ANYTHING CHANGES WILL CONTINUE TO MONITOR
[2019-12-10 00:17] VITALS: BP 149/87
--- NOTE | 2019-12-10 04:32 | NUR ---
patients cares were assumed after a transfer from [facility]. patient was assessed and meds were passed, hourly rounds were made. my commit to sit conversation was about getting through cancer. 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 the bed remains in a low and locked position
[2019-12-10 04:36] VITALS: BP 144/77
[2019-12-10 05:55] LABS: HEMATOCRIT 31.7 % (42.0-52.0); HEMOGLOBIN 10.5 gm/dL (14.0-18.0); MCH 31.7 pg (26.0-34.0); MCV 95.8 fL (80.0-100.0); PLATELET COUNT 122 thou/uL (150-400); RBC 3.31 mil/uL (4.50-6.00); RDW 15.1 % (10.5-14.5); WBC 10.7 thou/uL (4.0-11.0)
[2019-12-10] MEDS ORDERED: NORVASC5 MG PO (07:24)
[2019-12-10] MEDS ORDERED: CEFDINIR300 MG PO (07:24)
[2019-12-10] MEDS ORDERED: OXYCODONE HCL 55 MG PO (07:25)
[2019-12-10 07:50] VITALS: BP 150/87
[2019-12-10 09:30] VITALS: BP 150/87
[2019-12-10 11:06] VITALS: BP 150/87
--- NOTE | 2019-12-10 11:51 | NUR ---
PT CARE ASSUMED AT 0700. ASSESSMENT CHARTED. MEDICATION CHARTED. PT TO XR FOR CHEST IN AM. RT ANKLE CAST. PORT FOR CHEMO ONLY. PT DISCHARGED TO HOME. IV'S D/C'D. TELEMETRY D/C'D.
[2019-12-10 13:47] LABS: ABSOLUTE NEUTROPHILS 8.8 thou/uL (1.4-8.2); METAMYELOCYTES 2 %; PLATELET ESTIMATE NORMAL
== END 2019-12-10 12:11 | disposition home or self-care (01) | DRG 871 ==
LOC: ER 15:17 → 3W 18:33 → EROBS 18:33 → 3W 12-08 00:30 → 2N 12-10 00:16
PROVIDERS: Internal Medicine Hematology & Oncology; Physician Assistant; ADMIT Family Medicine; ATTEND Family Medicine
DX: A41.9 Sepsis, unspecified organism (principal); J18.9 Pneumonia, unspecified organism; C34.90 Malignant neoplasm of unspecified part of unspecified bronchus or lung; J44.0 Chronic obstructive pulmonary disease with (acute) lower respiratory infection; R65.10 Systemic inflammatory response syndrome (SIRS) of non-infectious origin without acute organ dysfunction; I10 Essential (primary) hypertension; I25.10 Atherosclerotic heart disease of native coronary artery without angina pectoris; G89.29 Other chronic pain; M54.9 Dorsalgia, unspecified; D69.6 Thrombocytopenia, unspecified; N40.0 Benign prostatic hyperplasia without lower urinary tract symptoms; M79.10 Myalgia, unspecified site; Z20.828 Contact with and (suspected) exposure to other viral communicable diseases; I25.2 Old myocardial infarction; Z87.442 Personal history of urinary calculi; Z86.718 Personal history of other venous thrombosis and embolism; Z87.891 Personal history of nicotine dependence; Z82.49 Family history of ischemic heart disease and other diseases of the circulatory system; Z80.0 Family history of malignant neoplasm of digestive organs; Z92.3 Personal history of irradiation; Z86.711 Personal history of pulmonary embolism
CPT/HCPCS: 10879

== ENCOUNTER → 2019-12-18 | Outpatient (CLI) | payer OTHER ==
[~2019-12-18] MED LIST changes: +CEFDINIR300 MG PO; +OXYCODONE HCL 55 MG PO
[2019-12-18 15:08] LABS: HEMATOCRIT 42.9 % (42.0-52.0); HEMOGLOBIN 14.1 gm/dL (14.0-18.0); MCHC 32.9 g/dL (28.0-37.0); MCV 94.1 fL (80.0-100.0); PLATELET COUNT 556 thou/uL (150-400); RBC 4.56 mil/uL (4.50-6.00); RDW 15.3 % (10.5-14.5); WBC 7.2 thou/uL (4.0-11.0)
[2019-12-18 15:23] LABS: ALBUMIN 3.4 g/dL (3.4-5.0); CALCIUM 9.3 mg/dL (8.5-10.1); CREATININE 1.4 mg/dL (0.7-1.3); POTASSIUM 4.5 mmol/L (3.5-5.1); TOTAL BILIRUBIN 0.3 mg/dL (0.2-1.0); TOTAL PROTEIN 7.8 g/dL (6.4-8.2)
[2019-12-18 15:41] LABS: ABSOLUTE NEUTROPHILS 5.6 thou/uL (1.4-8.2); ANISOCYTOSIS 1+; LARGE PLATELETS OCCASIONAL; POLYCHROMASIA OCCASIONAL
== END ==
LOC: OPONC 08:35
PROVIDERS: ATTEND Internal Medicine Hematology & Oncology
DX: C34.90 Malignant neoplasm of unspecified part of unspecified bronchus or lung (principal)

== ENCOUNTER → 2019-12-25 | Outpatient (CLI) | payer OTHER ==
--- NOTE | 2019-12-25 12:57 | NUR ---
IN FOR LABS S/P CHEMOTHERAPY. [facility] LABS FROM [facility] WITHOUT DIFFICULTY. FLUSHED PORT WITH HEPARIN 500 UNITS AND DEACCESSED. TO RETURN NEXT SATURDAY FOR CYCLE 2 OG CHEMO. DISMISSED IN STABLE CONDITION.
[2019-12-25 12:59] LABS: ABSOLUTE NEUTROPHILS 4.6 thou/uL (1.4-8.2); BASOPHILS 2.3 % (0.0-2.0); EOSINOPHILS 0.2 % (0.0-3.0); HEMATOCRIT 39.5 % (42.0-52.0); HEMOGLOBIN 13.2 gm/dL (14.0-18.0); LYMPHOCYTES 12.8 % (24.0-44.0); MCH 31.5 pg (26.0-34.0); MCHC 33.3 g/dL (28.0-37.0); MCV 94.8 fL (80.0-100.0); MONOCYTES 8.2 % (1.0-8.0); PLATELET COUNT 353 thou/uL (150-400); POLYS 76.5 % (36.0-66.0); RBC 4.17 mil/uL (4.50-6.00); RDW 15.5 % (10.5-14.5)
[2019-12-25 13:23] LABS: ALBUMIN 3.5 g/dL (3.4-5.0); CALCIUM 8.7 mg/dL (8.5-10.1); CREATININE 1.3 mg/dL (0.7-1.3); POTASSIUM 4.4 mmol/L (3.5-5.1); TOTAL BILIRUBIN 0.5 mg/dL (0.2-1.0); TOTAL PROTEIN 7.3 g/dL (6.4-8.2)
== END ==
LOC: OPONC 11:28
PROVIDERS: ATTEND Internal Medicine Hematology & Oncology
DX: Z45.2 Encounter for adjustment and management of vascular access device (principal); C34.90 Malignant neoplasm of unspecified part of unspecified bronchus or lung

== ENCOUNTER → 2019-12-30 | Outpatient (CLI) | payer OTHER ==
[~2019-12-30] VITALS: Ht 167.6 cm; Wt 93.9 kg
[~2019-12-30] MED LIST changes: +CISPLATIN IV; +ETOPOPHOS100 MG IV; +OLANZAPINE10 M1 PO; +TECENTRIQ1200 MG/20 IV
[2019-12-30 09:11] LABS: ABSOLUTE NEUTROPHILS 3.8 thou/uL (1.4-8.2); BASOPHILS 0.9 % (0.0-2.0); EOSINOPHILS 1.1 % (0.0-3.0); HEMATOCRIT 38.3 % (42.0-52.0); HEMOGLOBIN 12.9 gm/dL (14.0-18.0); MCH 31.8 pg (26.0-34.0); MCHC 33.6 g/dL (28.0-37.0); MCV 94.5 fL (80.0-100.0); PLATELET COUNT 256 thou/uL (150-400); RBC 4.06 mil/uL (4.50-6.00); WBC 5.1 thou/uL (4.0-11.0)
[2019-12-30 09:15] VITALS: BP 125/81
[2019-12-30 09:30] LABS: CALCIUM 9.1 mg/dL (8.5-10.1); CREATININE 1.4 mg/dL (0.7-1.3); POTASSIUM 3.9 mmol/L (3.5-5.1)
[2019-12-30 09:36] LABS: ALBUMIN 3.5 g/dL (3.4-5.0); MAGNESIUM 1.8 mg/dL (1.8-2.4); TOTAL BILIRUBIN 0.4 mg/dL (0.2-1.0); TOTAL PROTEIN 7.3 g/dL (6.4-8.2)
[2019-12-30 13:00] VITALS: BP 135/81
--- NOTE | 2019-12-30 13:31 | NUR ---
HERE FOR DAY 1, CYCLE 2 OF CHEMO FOR SCLC: TECENTRIQ, CISPLAT, ETOPOSIDE. PT REPORTS DOING WELL, FEELING WELL. STATES LUNGS/BREATHING SO MUCH BETTER SINCE PNEUMONIA HAS CLEARED. SAW ORTHO WHO REMOVED MARISA AND PLACED A NEW CAST ON RT LEG. GETTING AROUND WELL WITH KNEE SCOOTER. DENIES ANY FEVER/CHILLS, N/V/DIARRHEA, BLOOD/MUCUS IN STOOLS, VISUAL DISTURBANCES OR OTHER COMPLAINTS. PORT ACCESSED WITH EASE, BRISK BLOOD RETURN. LABS CHECKED, OK'D FOR CHEMO TODAY. CHEMO GIVEN ORDERED, PT TOLERATING WELL, NO NOTED SIDE EFFECTS, VSS. SCHEDULE SET FOR RETURN THIS WEEK: ETOPOSIDE SAT/SAT, NEULASTA SAT; LABS EVERY SATURDAY; CYCLE 3 TO START ON 01/18. CT OF ABD 01/17. REVIEWED PT TEACHING. PT DEMONSTRATES GOOD UNDERSTANDING OF PLAN. ENCOURAGED TO MAKE F/U APPT WITH DR. [facility]. ENCOURAGED TO F/U WITH DR. HORNE WELL. PT IS NO LONGER TAKING AMLODIPINE--ENCOURAGED HIM TO CALL DR. HORNE TO VERIFY IF THIS IS CORRECT. ALSO ENCOURAGED PT TO ASK DR. WYNNE ABOUT HIS HEARING LOSS (LOSS OCCURRED PRIOR TO START OF THIS CHEMO COURSE). ALL THESE NOTES AND SCHEDULE GIVEN TO PT TO TAKE HOME TO HELP HIM REMEMBER AND TO SHARE WITH HIS WHO IS A NURSE.
--- NOTE | 2019-12-30 14:20 | NUR ---
COMPLETED CHEMO WITHOUT INCIDENT. PORT LEFT ACCESSED. DISMISSED IN STABLE CONDITION. WILL RETURN AT 0900 TOMORROW FOR DAY 2.
== END ==
LOC: OPONC 08:42
PROVIDERS: Internal Medicine Hematology & Oncology; ATTEND Family Medicine
DX: Z51.11 Encounter for antineoplastic chemotherapy (principal); C34.90 Malignant neoplasm of unspecified part of unspecified bronchus or lung

== ENCOUNTER → 2019-12-31 | Outpatient (CLI) | payer OTHER ==
[2019-12-31 13:13] VITALS: BP 116/77
--- NOTE | 2019-12-31 13:20 | NUR ---
IN FOR DAY 2 OF CYCLE 2 OF CHEMOTHERAPY. HAD BIG DAY YESTERDAY. STATED STARTING TO FEEL THE EFFECTS OF CHEMO, MEANING, RINGING IN EARS, FATIGUE, AND CHEMO BRAIN. PATIENT STATES THIS IS WHAT HE HAD WITH HIS PREVIOUS CHEMO REGIMEN 1-2 YEARS AGO. DENIED NAUSEA/VOMITING. IMPLANTED PORT ACCESSED YESTERDAY. RECEIVED GOOD BLOOD RETURN TODAY. DRESSING LOOSE SO CHANGED TO PORT. PREMEDS GIVEN. DAY 2 OF ETOPOSIDE INFUSED OVER ONE HOUR FOLLOWED BY A 50 ML NS FLUSH. TOLERATED WELL. SLEPT THROUGHOUT TREATMENT. HEPARIN LOCKED PORTACATH AND LEFT ACCESSED FOR DAY 3 TOMORROW. DISMISSED IN STABLE CONDITION.
== END ==
LOC: OPONC 08:52
PROVIDERS: ATTEND Internal Medicine Hematology & Oncology
DX: Z51.11 Encounter for antineoplastic chemotherapy (principal); C34.90 Malignant neoplasm of unspecified part of unspecified bronchus or lung

== ENCOUNTER → 2020-01-01 | Outpatient (CLI) | payer OTHER ==
[2020-01-01 09:31] VITALS: BP 138/76
--- NOTE | 2020-01-01 14:10 | NUR ---
IN FOR DAY 3 OF CYCLE 2 CHEMOTHERAPY. DENIED NAUSEA, FEVER, CHILLS, DIARRHEA. MAIN COMPLAINT IS FATIGUE. RECEIVED GOOD BLOOD RETURN FROM PORTACATH. PREMEDS GIVEN. INFUSED ETOPOSIDE OVER 1 HOUR AND TOLERATED WELL. HEPARIN LOCKED PORT AND DEACCESSED. TO RETURN TOMORROW FOR NEULASTA INJECTION. DISMISSED IN STABLE CONDITION.
== END ==
LOC: OPONC 08:49
PROVIDERS: ATTEND Internal Medicine Hematology & Oncology
DX: C34.90 Malignant neoplasm of unspecified part of unspecified bronchus or lung (principal)

== ENCOUNTER → 2020-01-02 | Outpatient (CLI) | payer OTHER ==
[~2020-01-02] MED LIST changes: +NORCO 5-325 TA1 EAC2 PO
[2020-01-02 12:43] VITALS: BP 106/68
--- NOTE | 2020-01-02 12:44 | NUR ---
IN FOR NEULASTA 24 HRS AFTER CHEMOTHERAPY COMPLETED. NEULASTA INJECTION GIVEN SUBQ IN LEFT ARM. PATIENT STATED FEELING OK EXCEPT FOR THE FATIGUE. VITAL SIGNS STABLE. TO RETURN SATURDAY FOR F/U CHEMO LABS. DISMISSED IN GOOD CONDITION.
== END ==
LOC: OPONC 12:00
PROVIDERS: ATTEND Internal Medicine Hematology & Oncology
DX: C34.90 Malignant neoplasm of unspecified part of unspecified bronchus or lung (principal); D70.1 Agranulocytosis secondary to cancer chemotherapy; T45.1X5A Adverse effect of antineoplastic and immunosuppressive drugs, initial encounter
CPT/HCPCS: 95112

== ENCOUNTER 2020-01-05 08:12 | Emergency (ER) | payer OTHER ==
[~2020-01-05] VITALS: Ht 167.6 cm; Wt 95.3 kg
[~2020-01-05 08:12] MED LIST changes: -NORCO 5-325 TA1 EAC2 PO
[2020-01-05 09:59] LABS: HEMATOCRIT 33.8 % (42.0-52.0); HEMOGLOBIN 11.4 gm/dL (14.0-18.0); MCH 32.1 pg (26.0-34.0); MCHC 33.9 g/dL (28.0-37.0); MCV 94.8 fL (80.0-100.0); PLATELET COUNT 120 thou/uL (150-400); RBC 3.56 mil/uL (4.50-6.00); RDW 15.5 % (10.5-14.5); WBC 10.1 thou/uL (4.0-11.0)
[2020-01-05 10:01] LABS: ANION GAP 8 mmol/L (7-16); BUN 22 mg/dL (7-18); CALCIUM 8.2 mg/dL (8.5-10.1); CHLORIDE 106 mmol/L (98-107); CO2 28 mmol/L (21-32); CREATININE 1.3 mg/dL (0.7-1.3); GLUCOSE 129 mg/dL (74-106); POTASSIUM 4.3 mmol/L (3.5-5.1); SODIUM 142 mmol/L (136-145)
[2020-01-05 10:12] LABS: ALBUMIN 3.1 g/dL (3.4-5.0); LIPASE 126 U/L (73-393); SGOT 12 U/L (15-37); SGPT 32 U/L (30-65); TOTAL BILIRUBIN 0.7 mg/dL (0.2-1.0); TOTAL PROTEIN 6.4 g/dL (6.4-8.2); TROPONIN-I <0.06 ng/mL (<0.06)
[2020-01-05 11:17] LABS: ABSOLUTE NEUTROPHILS 9.4 thou/uL (1.4-8.2)
[2020-01-05 11:18] LABS: ANISOCYTOSIS 1+
[2020-01-05 12:08] LABS: URINE BILIRUBIN NEGATIVE (Negative); URINE BLOOD 3+ (Negative); URINE CLARITY CLEAR; URINE COLOR YELLOW; URINE GLUCOSE-RANDOM* NEGATIVE (Negative); URINE KETONES NEGATIVE (Negative); URINE LEUKOCYTES-REFLEX NEGATIVE (Negative); URINE NITRITE-REFLEX NEGATIVE (Negative); URINE PROTEIN (DIPSTICK) NEGATIVE (Negative); URINE UROBILINOGEN 0.2 E.U./dl (0.2-1.0)
[2020-01-05 12:48] LABS: CASTS None Seen /LPF (None Seen); SQUAMOUS 0-3 Few /LPF (0-3); URINE RBC >20 Many /HPF (0-2); URINE WBC-REFLEX 0-5 Rare /HPF (0-5)
[2020-01-05 12:49] LABS: BACTERIA-REFLEX None Seen /HPF (None Seen); CRYSTALS None Seen /LPF (None Seen)
[2020-01-05] MEDS ORDERED: NORCO 5-325 TA1 EAC2 PO (13:09)
[2020-01-05 14:01] VITALS: BP 143/80
--- NOTE | 2020-01-05 16:07 | EKG ---
[facility] [place] [address] ELECTROCARDIOGRAM REPORT Name: MATTHEW ESCALANTE Room #: [facility].#: [id number] Admission: 01/05/20 Attend Phys: Discharge: 01/05/20 Date of : 64 Report #: [id number] THIS REPORT FOR: cc: Nader Gibson MD, Neal A. MD Couchonnal, Luis F. MD ~ THIS REPORT FOR: //name// [facility] ED Test Date: 2020-01-05 Test Time: 08:55:18 Pat Name: MATTHEW ESCALANTE Department: Room: Gender: Lav Crewman: esheets : 1960 Requested By: Jayme Mercer Order Number: [id number] : Errol Hurley Measurements Intervals Ramey Rate: 81 P: 55 WA: 151 QRS: 62 QRSD: 85 T: 57 QT: 338 QTc: 393 Interpretive Statements Sinus rhythm Minimal ST elevation, anterior leads Baseline wander in lead(s) II,III,aVF,V1,V2 Compared to ECG 11/27/2019 23:44:16 No significant changes Electronically Signed On 01-05-2020 16:06:48 CDT by Errol Hurley [email or web address] <ELECTRONICALLY SIGNED> By: Errol Hurley MD 01/05/20 1606 0855 Errol Hurley MD /EPI
== END 2020-01-05 14:01 | disposition home or self-care (01) ==
LOC: ER 08:12
PROVIDERS: Emergency Medicine
DX: R31.9 Hematuria, unspecified (principal); R10.11 Right upper quadrant pain; I25.2 Old myocardial infarction; Z87.891 Personal history of nicotine dependence; Z88.6 Allergy status to analgesic agent; Z88.7 Allergy status to serum and vaccine; Z91.030 Bee allergy status; Z79.82 Long term (current) use of aspirin; Z79.899 Other long term (current) drug therapy; Z87.442 Personal history of urinary calculi; Z86.718 Personal history of other venous thrombosis and embolism

== ENCOUNTER → 2020-01-07 | Outpatient (CLI) | payer OTHER ==
[~2020-01-07] MED LIST changes: +NORCO 5-325 TA1 EAC2 PO
[2020-01-07 09:10] VITALS: BP 115/88
[2020-01-07 10:10] LABS: HEMOGLOBIN 11.8 gm/dL (14.0-18.0)
[2020-01-07 10:13] LABS: MCH 32.1 pg (26.0-34.0); MCHC 33.8 g/dL (28.0-37.0); RBC 3.69 mil/uL (4.50-6.00); RDW 15.9 % (10.5-14.5)
[2020-01-07 10:23] LABS: WBC 1.2 thou/uL (4.0-11.0)
[2020-01-07 10:31] LABS: ALBUMIN 3.4 g/dL (3.4-5.0); CALCIUM 8.9 mg/dL (8.5-10.1); CREATININE 1.2 mg/dL (0.7-1.3); POTASSIUM 4.1 mmol/L (3.5-5.1); TOTAL BILIRUBIN 0.7 mg/dL (0.2-1.0); TOTAL PROTEIN 7.2 g/dL (6.4-8.2)
[2020-01-07 12:42] LABS: ABSOLUTE NEUTROPHILS 0.4 thou/uL (1.4-8.2); ATYPICAL LYMPHS 1 %; METAMYELOCYTES 1 %; NUCLEATED RBCS 1 /100WBC
[2020-01-07 12:44] LABS: ANISOCYTOSIS SLIGHT
[2020-01-07 12:45] LABS: PLATELET COUNT 83 thou/uL (150-400); POIKILOCYTOSIS SLIGHT
[2020-01-07 12:46] LABS: PLATELET ESTIMATE SLIGHTLY DECREASED
--- NOTE | 2020-01-07 14:11 | NUR ---
IN FOR 1ST WEEK POST CHEMO LAB. [facility] LAB FROM [facility]. PATIENT DENIED FEVER, CHLLS, NAUSEA, PAIN. STATED HE FEELS LIKE HE HAS A COLD. STATED GOOD APPETITE, SLEEPING WELL. PATIENT WENT TO ED ON SATURDAY THIS WEEK FOR SEVERE ABD PAIN. CT DONE WHICH DIDN'T SHOW ANY KIDNEY STONES OR GALL STONES. PATIENT STATED AFTER HE HAD 2 LITERS OF FLUID THE PAIN WENT AWAY AND HAS NOT COME BACK. CBC SHOWED PATIENT IS NEUTROPENIC WITH AN ANC OF 500. THIS RN NOTIFIED PATIENT OF FINDINGS AND DISCUSSED INFECTION PRECAUTIONS. PATIENT TO CALL IF HAS ANY FEVER OR CHILLS.
== END ==
LOC: OPONC 08:41
PROVIDERS: ATTEND Internal Medicine Hematology & Oncology
DX: C34.90 Malignant neoplasm of unspecified part of unspecified bronchus or lung (principal); E86.0 Dehydration

== ENCOUNTER → 2020-01-08 | Outpatient (CLI) | payer OTHER ==
[2020-01-08 13:39] LABS: HEMATOCRIT 33.5 % (42.0-52.0); HEMOGLOBIN 11.3 gm/dL (14.0-18.0); MCHC 33.6 g/dL (28.0-37.0); MCV 95.2 fL (80.0-100.0); RBC 3.52 mil/uL (4.50-6.00); RDW 15.7 % (10.5-14.5)
[2020-01-08 13:41] LABS: WBC 1.4 thou/uL (4.0-11.0)
[2020-01-08 13:49] LABS: ALBUMIN 3.2 g/dL (3.4-5.0); CALCIUM 8.6 mg/dL (8.5-10.1); CREATININE 1.1 mg/dL (0.7-1.3); MAGNESIUM 1.5 mg/dL (1.8-2.4); POTASSIUM 4.3 mmol/L (3.5-5.1); TOTAL BILIRUBIN 0.5 mg/dL (0.2-1.0)
[2020-01-08 14:25] LABS: ABSOLUTE NEUTROPHILS 0.7 thou/uL (1.4-8.2)
[2020-01-08 14:26] LABS: METAMYELOCYTES 4 %
[2020-01-08 14:27] LABS: ATYPICAL LYMPHS 4 %
[2020-01-08 14:28] LABS: ANISOCYTOSIS 1+; NUCLEATED RBCS 2 /100WBC
[2020-01-08 14:45] LABS: PLATELET COUNT 64 thou/uL (150-400)
[2020-01-08 15:35] VITALS: BP 98/69
[2020-01-08 15:46] LABS: URINE BILIRUBIN NEGATIVE (Negative); URINE BLOOD NEGATIVE (Negative); URINE CLARITY CLEAR; URINE COLOR YELLOW; URINE GLUCOSE-RANDOM* NEGATIVE (Negative); URINE KETONES NEGATIVE (Negative); URINE LEUKOCYTES-REFLEX NEGATIVE (Negative); URINE NITRITE-REFLEX NEGATIVE (Negative); URINE PROTEIN (DIPSTICK) NEGATIVE (Negative); URINE UROBILINOGEN 0.2 E.U./dl (0.2-1.0)
--- NOTE | 2020-01-08 18:04 | NUR ---
IN FOR IV HYDRATION FOR DEHYDRATION AND RT FLANK PAIN. LABS DRAWN FROM PORTACATH ORDERED. UA COLLECTED AND RESULTED. ALL LABS FAXED TO DR. WYNNE. CALLED CRITICAL RESULT LAB TO DR. WYNNE. ALSO REPORTED AUDIBLE WHEEZING AND CRACKLES TO RT UPPER AND LOWER LOBES. ORDERS RECEIVED AND LASIX GIVEN. FLANK PAIN MUCH BETTER BY THE END OF INFUSION. VOIDED APPROXIMATELY 1000 ML CLEAR YELLOW URINE. HEPARIN LOCKED PORTACATH AND DEACCESSED. DISMISSED IN STABLE CONDITION. INSTRUCTED PATIENT TO CALL IF PAIN RETURNS OR REPORT TO EMERGENCY ROOM. STATED UNDERSTANDING.
== END ==
LOC: OPONC 10:31
PROVIDERS: ATTEND Internal Medicine Hematology & Oncology
DX: E86.0 Dehydration (principal); R10.9 Unspecified abdominal pain
CPT/HCPCS: 95113

== ENCOUNTER → 2020-01-14 | Outpatient (CLI) | payer OTHER ==
[2020-01-14 09:30] VITALS: BP 130/73
[2020-01-14 09:47] LABS: HEMATOCRIT 33.2 % (42.0-52.0); MCH 31.8 pg (26.0-34.0); MCHC 33.3 g/dL (28.0-37.0); MCV 95.5 fL (80.0-100.0); PLATELET COUNT 136 thou/uL (150-400); RBC 3.47 mil/uL (4.50-6.00); RDW 16.3 % (10.5-14.5); WBC 5.6 thou/uL (4.0-11.0)
--- NOTE | 2020-01-14 10:01 | NUR ---
PT IN FOR CHEMO F/U LABS. PREFERRED PORT DRAW SO PORT ACCESSED WITHOUT DIFFICULTY, LABS DRAWN, PORT DEACCESSED. PT REPORTS FLANK PAIN HAS BEEN GONE SINCE LAST WEEKEND. STATES HE HAD A COUPLE PERIODS OF SLEEP/REST WHERE HE AWAKENED IN A DRENCHING SWEAT THEN HAD NO MORE PAIN. DENIES NOTED FEVER/CHILLS. EATING/DRINKING WELL. NO N/V/DIARRHEA. LOOKS WELL. DOES HAVE SOME MILD RHONCHI R LUNG BUT NOT LOUD PRIOR TO START OF CHEMO. PT FEELS LUNGS IN GENERAL ARE IMPROVING. STATES HE SPOKE WITH AFSANEH DISPATCH MACHINE RUNNER WITH DR. WYNNE THIS WEEK IN F/U AND WILL BE SPEAKING WITH HER AGAIN LATER THIS WEEK. SEES DR. WYNNE NEXT WEEK PRIOR TO CHEMO. GOT CAST OFF R FOOT, NOW IN A WALKING BOOT BUT IS STILL NON WT BEARING. WILL WATCH FOR LAB RESULTS. PT WOULD LIKE TO MOVE CT SCAN TO TOMORROW AND SEE IF HE CAN SEE DR. WYNNE ON SATURDAY OF NEXT WEEK SO WE CAN KEEP NEXT ROUND OF CHEMO STARTING 01/18. WILL LOOK INTO THIS FOR PT AFTER LABS RESULTED. PT DISMISSED IN STABLE CONDITION.
[2020-01-14 10:06] LABS: ALBUMIN 3.1 g/dL (3.4-5.0); CALCIUM 8.6 mg/dL (8.5-10.1); CREATININE 0.9 mg/dL (0.7-1.3); POTASSIUM 4.1 mmol/L (3.5-5.1); TOTAL BILIRUBIN 0.2 mg/dL (0.2-1.0); TOTAL PROTEIN 6.6 g/dL (6.4-8.2)
[2020-01-14 11:19] LABS: ABSOLUTE NEUTROPHILS 3.9 thou/uL (1.4-8.2); ANISOCYTOSIS 1+; METAMYELOCYTES 3 %; NUCLEATED RBCS 1 /100WBC
== END ==
LOC: OPONC 10:00
PROVIDERS: ATTEND Internal Medicine Hematology & Oncology
DX: C34.90 Malignant neoplasm of unspecified part of unspecified bronchus or lung (principal); I10 Essential (primary) hypertension

== ENCOUNTER → 2020-01-18 | Outpatient (CLI) | payer OTHER | LOC: CAT 10:06 | PROVIDERS: ATTEND Registered Nurse | DX: C34.90 Malignant neoplasm of unspecified part of unspecified bronchus or lung (principal); K76.0 Fatty (change of) liver, not elsewhere classified; I25.10 Atherosclerotic heart disease of native coronary artery without angina pectoris; J98.11 Atelectasis ==

== ENCOUNTER → 2020-01-19 | Outpatient (CLI) | payer OTHER ==
[~2020-01-19] VITALS: Ht 167.6 cm; Wt 94.3 kg
[2020-01-19 11:13] LABS: HEMATOCRIT 39.1 % (42.0-52.0); HEMOGLOBIN 13.2 gm/dL (14.0-18.0); MCH 32.1 pg (26.0-34.0); MCHC 33.7 g/dL (28.0-37.0); MCV 95.3 fL (80.0-100.0); PLATELET COUNT 559 thou/uL (150-400); RDW 17.1 % (10.5-14.5); WBC 6.2 thou/uL (4.0-11.0)
[2020-01-19 11:25] LABS: ALBUMIN 3.6 g/dL (3.4-5.0); CALCIUM 9.2 mg/dL (8.5-10.1); CREATININE 1.5 mg/dL (0.7-1.3); MAGNESIUM 2.3 mg/dL (1.8-2.4); POTASSIUM 4.6 mmol/L (3.5-5.1); TOTAL BILIRUBIN 0.3 mg/dL (0.2-1.0); TOTAL PROTEIN 7.6 g/dL (6.4-8.2)
[2020-01-19 11:50] VITALS: BP 106/82
[2020-01-19 12:08] LABS: ABSOLUTE NEUTROPHILS 4.8 thou/uL (1.4-8.2); ANISOCYTOSIS SLIGHT; METAMYELOCYTES 1 %
[2020-01-19 12:09] LABS: LARGE PLATELETS OCCASIONAL; POIKILOCYTOSIS SLIGHT
--- NOTE | 2020-01-19 16:36 | NUR ---
HERE FOR CYCLE 3, DAY 1 OF CHEMO FOR HIS SCLC. HAD CT SCAN DONE YESTERDAY, LABS DRAWN EARLY THIS MORNING THEN VISIT WITH DR. WYNNE PRIOR TO RETURN HERE AT 1140. OK'D BY DR. WYNNE AND MEETS LAB PARAMATERS TO PROCEED WITH CHEMO TODAY. PT REPORTS DOING WELL EXCEPT FATIGUED AND BEGINNING TO LOSE HIS APPETITE. DENIES ANY FEVERS OR S/S INFECTION. NO DIARRHEA OR BLOOD/MUCOUS NOTED IN STOOLS. DENIES VISUAL DISTURBANCE. NO ABD DISCOMFORT, CHEST PAIN OR ISSUES WITH LUNGS. STILL HAS SOME BILAT RALES BUT PT FEELS THEY ARE MUCH IMPROVED AND STATES THAT DR. WYNNE IS PLEASED WITH HIS PULMONARY STATUS. STILL HAS SOME TINNITUS WHICH HASN'T CHANGED FROM HIS BASELINE PRIOR TO START OF THIS CHEMO. PORT WAS ACCESSED YESTERDAY FOR CT SCAN. EXCELLENT BLOOD RETURN NOTED. PREMEDS AND PREHYDRATION GIVEN ORDERED FOLLOWED BY CHEMO ORDERED. PT TOLERATED WITHOUT INCIDENT. NO S/S REACTION TO ANY DRUGS. WILL LEAVE PORT ACCESSED FOR TOMORROW. PT REQUESTING ADDITIONAL FLUIDS EACH DAY TO HOPEFULLY PREVENT THIS ISSUE HE HAD CYCLE 2 WITH FLANK PAIN. ORDER WAS RECEIVED FROM DR. WYNNE FOR THIS.
== END ==
LOC: OPONC 08:51
PROVIDERS: ATTEND Internal Medicine Hematology & Oncology
DX: Z51.11 Encounter for antineoplastic chemotherapy (principal); C34.90 Malignant neoplasm of unspecified part of unspecified bronchus or lung

== ENCOUNTER → 2020-01-20 | Outpatient (CLI) | payer OTHER ==
[2020-01-20 09:00] VITALS: BP 127/78
--- NOTE | 2020-01-20 13:14 | NUR ---
PT HERE FOR DAY 2, CYCLE 3 OF CHEMO FOR HIS SCLC. PT ALSO REQUESTING FLUIDS TODAY. PORT STILL ACCESSED FROM 01/17, DRESSING INTACT, EXCELLENT BLOOD RETURN. 2 L NS GIVEN, ORAL PREMEDS GIVEN, ETOPOSIDE INFUSED OVER AN HOUR WITHOUT INCIDENT. PT REPORTS FEELING WELL TODAY. DOES HAVE SOME EXERTIONAL DYSPNEA WHICH HAS BEEN PRESENT SINCE HIS LUNG CANCER RECURRENCE. LUNGS SOUND MORE CLEAR TODAY BUT HAS SOME RHONCHI. VOIDING WELL. EATING WELL. NO CONCERNS NOTED. PORT LEFT ACCESSED FOR TOMORROW. DISMISSED IN STABLE CONDITION. SCHEDULED TO RETURN AT 0900 IN THE MORNING.
== END ==
LOC: OPONC 07:52
PROVIDERS: ATTEND Internal Medicine Hematology & Oncology
DX: Z51.11 Encounter for antineoplastic chemotherapy (principal); C34.90 Malignant neoplasm of unspecified part of unspecified bronchus or lung; R06.00 Dyspnea, unspecified

== ENCOUNTER → 2020-01-21 | Outpatient (CLI) | payer OTHER ==
[2020-01-21 09:07] VITALS: BP 138/78
--- NOTE | 2020-01-21 13:26 | NUR ---
IN FOR DAY 3 OF CHEMOTHERAPY. PATIENT DENIED FEVER/CHILLS, NAUSEA, PAIN. PREMEDS GIVEN. TOLERATED ETOPOSIDE WITHOUT INCIDENT. HYDRATION FLUIDS GIVEN ORDERED. HEPARIN LOCKED PORTACATH AND DEACCESSED. TO RETURN TOMORROW FOR NEULASTA AND HYDRATION FLUIDS. DISMISSED IN STABLE CONDITION.
== END ==
LOC: OPONC 08:28
PROVIDERS: ATTEND Family Medicine
DX: Z51.11 Encounter for antineoplastic chemotherapy (principal); C34.90 Malignant neoplasm of unspecified part of unspecified bronchus or lung

== ENCOUNTER → 2020-01-22 | Outpatient (CLI) | payer OTHER ==
[2020-01-22 09:23] VITALS: BP 119/77
--- NOTE | 2020-01-22 13:35 | NUR ---
IN FOR DAY 4, CYCLE 3 NEULASTA INJECTION AND HYDRATION FLUIDS. PATIENT DENIED NAUSEA, PAIN, MOUTH SORES,DIARRHA/CONSTIPATION. STATED SLEPT WELL LAST NIGHT. STATED DOES NOT FEEL HUNGRY BUT IS EATING ANYWAY. MAIN COMPLAINT IS FATIGUE. NEULASTA GIVEN IN RIGHT ARM. PATIENT REQUESTED TO RECEIVE 1 LITER OF NORMAL SALINE HE HAS HAD PLENTY OF FLUIDS THE LAST 3 DAYS AND IS VOIDING IN LARGE AMOUNTS. 1 LITER NS GIVEN IV. HEPARIN LOCKED PORTACATH AND DEACCESSED. TO RETURN NEXT SATURDAY FOR LABS AND IV FLUIDS IF NEEDED. DISMISSED IN STABLE CONDITION.
== END ==
LOC: OPONC 08:24
PROVIDERS: ATTEND Internal Medicine Hematology & Oncology
DX: C34.90 Malignant neoplasm of unspecified part of unspecified bronchus or lung (principal); R53.83 Other fatigue
CPT/HCPCS: 95112

== ENCOUNTER → 2020-01-27 | Outpatient (CLI) | payer OTHER ==
[2020-01-27 10:30] VITALS: BP 114/83
[2020-01-27 10:35] LABS: HEMATOCRIT 33.3 % (42.0-52.0); HEMOGLOBIN 11.4 gm/dL (14.0-18.0); MCH 32.9 pg (26.0-34.0); MCHC 34.3 g/dL (28.0-37.0); MCV 95.8 fL (80.0-100.0); PLATELET COUNT 195 thou/uL (150-400); RBC 3.47 mil/uL (4.50-6.00); RDW 16.5 % (10.5-14.5); WBC 2.5 thou/uL (4.0-11.0)
[2020-01-27 11:03] LABS: ALBUMIN 3.3 g/dL (3.4-5.0); CALCIUM 8.9 mg/dL (8.5-10.1); CREATININE 1.1 mg/dL (0.7-1.3); POTASSIUM 4.9 mmol/L (3.5-5.1); TOTAL BILIRUBIN 0.5 mg/dL (0.2-1.0); TOTAL PROTEIN 7.1 g/dL (6.4-8.2)
--- NOTE | 2020-01-27 11:13 | NUR ---
PT IN FOR CHEMO F/U LABS, ONE WEEK POST CHEMO. STATES HE IS DOING WELL. DENIES N/V/DIARRHEA OR BOWEL ISSUES, FEVER/CHILLS, VISION TROUBLE, PAIN OR ANY OTHER CONCERNS. LOOKS WELL. EATING WELL. STATES HE FEELS THIS FLUIDS HE RECEIVED LAST WEEK ON DAYS 2-4 REALLY SEEMED TO HELP HIM. WANTED LABS DRAWN FROM PORT SO ACCESSED, LABS DRAWN, DEACCESSED PRIOR TO DISMISSAL. DISMISSED IN STABLE CONDITION. SCHEDULED TO RETURN AGAIN NEXT WEEK ON SAT.
[2020-01-27 12:21] LABS: ABSOLUTE NEUTROPHILS 1.6 thou/uL (1.4-8.2); ANISOCYTOSIS SLIGHT; ATYPICAL LYMPHS 1 %; POIKILOCYTOSIS SLIGHT
== END ==
LOC: OPONC 01-26 12:40
PROVIDERS: ATTEND Internal Medicine Hematology & Oncology
DX: Z45.2 Encounter for adjustment and management of vascular access device (principal); C34.90 Malignant neoplasm of unspecified part of unspecified bronchus or lung

== ENCOUNTER → 2020-02-03 | Outpatient (CLI) | payer OTHER ==
[2020-02-03 09:10] VITALS: BP 118/78
--- NOTE | 2020-02-03 09:10 | NUR ---
HERE FOR WEEKLY LAB DRAW POST CHEMO. REPORTS DOING WELL. DENIES FEVER/CHILLS. EATING WELL. R FOOT HURTS AT TIMES. WEARS WALKING BOOT. ABLE TO DRIVE NOW WHICH HE IS THANKFUL FOR. FATIGUE AND ENERGY LEVEL IMPROVING. NO CONCERNS NOTED. LABS DRAWN PER PORT WITHOUT DIFFICULTY. PT DISMISSED POST. SEES DR. WYNNE ON 02/07. CYCLE 4, DAY 1 OF CHEMO NEXT WEEK WITH US SCHEDULED FOR 02/09/20.
[2020-02-03 09:23] LABS: HEMATOCRIT 34.6 % (42.0-52.0); HEMOGLOBIN 11.6 gm/dL (14.0-18.0); MCH 31.9 pg (26.0-34.0); MCHC 33.4 g/dL (28.0-37.0); MCV 95.4 fL (80.0-100.0); RBC 3.63 mil/uL (4.50-6.00); WBC 6.7 thou/uL (4.0-11.0)
[2020-02-03 09:44] LABS: ALBUMIN 3.4 g/dL (3.4-5.0); CALCIUM 8.9 mg/dL (8.5-10.1); CREATININE 1.2 mg/dL (0.7-1.3); POTASSIUM 4.6 mmol/L (3.5-5.1); TOTAL BILIRUBIN 0.3 mg/dL (0.2-1.0); TOTAL PROTEIN 7.2 g/dL (6.4-8.2)
[2020-02-03 11:12] LABS: ABSOLUTE NEUTROPHILS 5.1 thou/uL (1.4-8.2); METAMYELOCYTES 1 %; MYELOCYTES 2 %; NUCLEATED RBCS 3 /100WBC
[2020-02-03 11:13] LABS: ANISOCYTOSIS 1+
[2020-02-03 13:07] LABS: PLATELET COUNT 138 thou/uL (150-400)
== END ==
LOC: OPONC 08:50
PROVIDERS: ATTEND Internal Medicine Hematology & Oncology
DX: C34.90 Malignant neoplasm of unspecified part of unspecified bronchus or lung (principal)

== ENCOUNTER → 2020-02-09 | Outpatient (CLI) | payer OTHER ==
[~2020-02-09] VITALS: Ht 167.6 cm; Wt 95.7 kg
[2020-02-09 09:14] LABS: ABSOLUTE NEUTROPHILS 5.2 thou/uL (1.4-8.2); BASOPHILS 1.3 % (0.0-2.0); EOSINOPHILS 0.8 % (0.0-3.0); HEMATOCRIT 34.2 % (42.0-52.0); HEMOGLOBIN 11.3 gm/dL (14.0-18.0); LYMPHOCYTES 11.7 % (24.0-44.0); MCV 96.9 fL (80.0-100.0); MONOCYTES 10.5 % (1.0-8.0); PLATELET COUNT 306 thou/uL (150-400); POLYS 75.7 % (36.0-66.0); RBC 3.53 mil/uL (4.50-6.00); RDW 18.2 % (10.5-14.5); WBC 6.9 thou/uL (4.0-11.0)
[2020-02-09 09:15] VITALS: BP 113/72
[2020-02-09 09:20] LABS: CALCIUM 8.8 mg/dL (8.5-10.1); CREATININE 1.2 mg/dL (0.7-1.3); POTASSIUM 4.2 mmol/L (3.5-5.1)
[2020-02-09 09:26] LABS: ALBUMIN 3.6 g/dL (3.4-5.0); TOTAL BILIRUBIN 0.4 mg/dL (0.2-1.0); TOTAL PROTEIN 7.2 g/dL (6.4-8.2)
[2020-02-09 10:40] LABS: ANISOCYTOSIS 2+; PLATELET ESTIMATE NORMAL; POLYCHROMASIA SLIGHT
--- NOTE | 2020-02-09 15:00 | NUR ---
PT HERE FOR CYCLE 4, DAY 1 OF CHEMO. REPORTS FATIGUE BUT OTHERWISE DOING WELL. DENIES ANY N/V/DIARRHEA/COLITIS, S/S ENDOCRINOPATHIES, VISION ISSUES OR OTHER CONCERNS. RT ANKLE HEALING WELL PER PT, NOW FULL WT BEARING, BRACE IS OFF, MILD PAIN. REVIEWED PLAN WITH PT. THIS IS HIS LAST CYCLE PRIOR TO A PET SCAN TO DETERMINE FUTURE CARE. PORT ACCESSED, EXCELLENT BLOOD RETURN, LABS DRAWN AND CHECKED PRIOR TO CHEMO. PREMEDS GIVEN. CHEMO ADMINISTERED ORDERED WITHOUT INCIDENT. PT DISMISSED POST COMPLETION OF HYDRATION FLUIDS. PORT FLUSHED AND LEFT ACCESSED FOR THE NIGHT. PT REMINDED TO TAKE HIS ZYPREXA TONITE AND FOR THE FOLLOWING 3 NITES FOR NAUSEA PREVENTION. PT SCHEDULED TO RETURN AGAIN TOMORROW AT 0900.
== END ==
LOC: OPONC 08:03
PROVIDERS: ATTEND Internal Medicine Hematology & Oncology
DX: Z51.11 Encounter for antineoplastic chemotherapy (principal); C34.90 Malignant neoplasm of unspecified part of unspecified bronchus or lung

== ENCOUNTER → 2020-02-10 | Outpatient (CLI) | payer OTHER ==
[2020-02-10 09:15] VITALS: BP 102/75
--- NOTE | 2020-02-10 12:31 | NUR ---
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 PREMEDS GIVEN. PORT ACCESSED YESTERDAY WITH D/I DRESSING, EXCELLENT BLOOD RETURN. PT ONLY COMPLAINT IS THAT OF TERRIBLE FATIGUE. DENIES N/V/DIARRHEA, FEVER/CHILLS OR OTHER CONCERNS. EATING/DRINKING WELL. GETTING FLUIDS TODAY WELL PER PT REQUEST (SAME WITH CYCLE 3) TO PREVENT ISSUES HE HAD POST CYCLE #2. WILL RETURN AGAIN TOMORROW FOR DAY #3 OF ETOPOSIDE THEN SATURDAY FOR NEULASTA. WEEKLY LABS SCHEDULED AND HAD PET SCAN SCHEDULED FOR 02/16.
--- NOTE | 2020-02-10 14:21 | NUR ---
PT COMPLETED HYDRATION FLUIDS GIVEN PER HIS REQUEST/PRN ORDER. LUNGS SOUND A BIT COARSE POST BUT PT DENIES ANY DYSPNEA, STATES HE HAS HAD A COLD. PT'S LUNGS DO SOUND COARSE QUITE OFTEN. PT REPORTS FEELING FINE, JUST TIRED. DISMISSED. ADVISED PT TO CALL DR. WYNNE WITH CONCERNS IF ANY THIS EVENING. PT WILL RETURN IN THE MORNING FOR LAST DAY OF ETOPOSIDE.
== END ==
LOC: OPONC 07:47
PROVIDERS: ATTEND Internal Medicine Hematology & Oncology
DX: Z51.11 Encounter for antineoplastic chemotherapy (principal); C34.90 Malignant neoplasm of unspecified part of unspecified bronchus or lung

== ENCOUNTER → 2020-02-11 | Outpatient (CLI) | payer OTHER ==
[2020-02-11 09:36] VITALS: BP 130/83
--- NOTE | 2020-02-11 12:21 | NUR ---
IN FOR DAY #3 OF CHEMOTHERAPY FOR LUNG CA. PREMEDS GIVEN. RECEIVED GOOD BLOOD RETURN FROM PORTACATH PRIOR TO STARTING ETOPOSIDE. DENIED NAUSEA, DIARRHEA, CONSTIPATION, MUCOSITIS. MAIN COMPLAINT IS SEVERE FATIGUE. PATIENT STATED STILL HAS A PRETTY GOOD APPETITE AND LOST ONLY 2 POUNDS. TOLERATED INFUSION WITHOUT INCIDENT. GAVE JUST 1 LITER SALINE HYDRATION PATIENT HAD AUDIBLE WHEEZING AND CRACKLES IN RIGHT UPPER AND LOWER LUNGS. WILL REASSESS TOMORROW AND GIVE MORE FLUIDS IF NEEDED. HEPARIN LOCKED PORTACATH AND LEFT ACCESSED FOR POSSIBLE FLUIDS TOMORROW. DISMISSED IN STABLE CONDITION.
== END ==
LOC: OPONC 08:07
PROVIDERS: ATTEND Internal Medicine Hematology & Oncology
DX: Z51.11 Encounter for antineoplastic chemotherapy (principal); C34.90 Malignant neoplasm of unspecified part of unspecified bronchus or lung

== ENCOUNTER → 2020-02-12 | Outpatient (CLI) | payer OTHER ==
[2020-02-12 09:05] VITALS: BP 130/88
--- NOTE | 2020-02-12 13:51 | NUR ---
IN FOR DAY 4 OF CYCLE 4 FOR NEULASTA INJECTION AND HYDRATION FLUIDS FOR SMALL CELL LUNG CA. MAIN COMPLAINT IS SEVERE FATIGUE. DENIED NAUSEA, PAIN, FEVER, CHILLS. LUNGS NOT COARSE TODAY. NEULASTA GIVEN SUBQ IN RIGHT UPPER ARM. 1 LITER NS GIVEN PER PATIENT REQUEST.
== END ==
LOC: OPONC 08:34
PROVIDERS: ATTEND Internal Medicine Hematology & Oncology
DX: E86.0 Dehydration (principal); C34.90 Malignant neoplasm of unspecified part of unspecified bronchus or lung
CPT/HCPCS: 95112

== ENCOUNTER → 2020-02-17 | Outpatient (CLI) | payer OTHER ==
[2020-02-17 13:45] VITALS: BP 126/83
[2020-02-17 15:01] LABS: HEMATOCRIT 32.3 % (42.0-52.0); HEMOGLOBIN 10.8 gm/dL (14.0-18.0); MCH 32.6 pg (26.0-34.0); MCHC 33.5 g/dL (28.0-37.0); MCV 97.2 fL (80.0-100.0); PLATELET COUNT 135 thou/uL (150-400); RBC 3.32 mil/uL (4.50-6.00); RDW 17.3 % (10.5-14.5); WBC 2.7 thou/uL (4.0-11.0)
[2020-02-17 15:18] LABS: ALBUMIN 3.4 g/dL (3.4-5.0); CALCIUM 8.6 mg/dL (8.5-10.1); CREATININE 1.5 mg/dL (0.7-1.3); POTASSIUM 4.3 mmol/L (3.5-5.1); TOTAL BILIRUBIN 0.5 mg/dL (0.2-1.0); TOTAL PROTEIN 7.1 g/dL (6.4-8.2)
--- NOTE | 2020-02-17 15:25 | NUR ---
HERE FOR CHEMO F/U LABS, ONE WEEK POST TREATMENT. PT REPORTS INCREASING FATIGUE. DENIES N/V/DIARRHEA, FEVER/CHILLS. EATING WELL. PORT ACCESSED, LABS DRAWN, PT SENT TO RADIOLOGY FOR PET SCAN. PT RETURNED SHORTLY AFTER STATING PET SCAN CANCELED D/T HIGH BLOOD GLUCOSE (357 PER PT'S REPORT OF THEIR CHECK). OUR LABS LATER CONFIRMED WITH A [address] WYNNE NOTIFIED OF THE CANCELED PET SCAN, ELEVATED BG, C/O FATIGUE WELL SLIGHT RHONCHI IN ALL LUNG NGO (NOT UNUSUAL FOR THIS PATIENT). ADDITIONAL LABS ORDERED, PT SCHEDULED TO SEE DR. HORNE THIS 02/19/20, AT 0945 TO MANAGE GLUCOSE ISSUE. LABS AND NOTE FAXED TO DR. HORNE'S OFFICE. REVIEWED PLAN WITH PT WHO VERBALIZES UNDERSTANDING AND AGREEMENT. PORT DEACCESSED. PT DISMISSED. DR. WYNNE'S OFFICE NOTIFIED THAT THEY WOULD NEED TO RESCHEDULE PET SCAN. PT WILL RETURN HERE FOR REPEAT LABS AGAIN IN ONE WEEK.
[2020-02-17 15:31] LABS: ABSOLUTE NEUTROPHILS 2.1 thou/uL (1.4-8.2); ANISOCYTOSIS 1+
== END ==
LOC: OPONC 10:50 → PET 12:02 → OPONC 13:37
PROVIDERS: ATTEND Internal Medicine Hematology & Oncology
DX: Z45.2 Encounter for adjustment and management of vascular access device (principal); C34.90 Malignant neoplasm of unspecified part of unspecified bronchus or lung; R53.83 Other fatigue

== ENCOUNTER → 2020-03-02 | Outpatient (CLI) | payer OTHER ==
[2020-03-02 09:13] LABS: HEMATOCRIT 31.9 % (42.0-52.0); HEMOGLOBIN 10.7 gm/dL (14.0-18.0); MCH 32.9 pg (26.0-34.0); MCHC 33.7 g/dL (28.0-37.0); MCV 97.8 fL (80.0-100.0); PLATELET COUNT 412 thou/uL (150-400); RBC 3.26 mil/uL (4.50-6.00); RDW 18.3 % (10.5-14.5); WBC 6.1 thou/uL (4.0-11.0)
[2020-03-02 09:23] VITALS: BP 109/80
[2020-03-02 09:45] LABS: CREATININE 1.1 mg/dL (0.7-1.3)
[2020-03-02 09:51] LABS: ALBUMIN 3.5 g/dL (3.4-5.0); TOTAL BILIRUBIN 0.3 mg/dL (0.2-1.0); TOTAL PROTEIN 7.1 g/dL (6.4-8.2)
[2020-03-02 11:01] LABS: ABSOLUTE NEUTROPHILS 4.9 thou/uL (1.4-8.2); METAMYELOCYTES 1 %; MYELOCYTES 1 %
[2020-03-02 11:03] LABS: ANISOCYTOSIS 2+
[2020-03-02 11:04] LABS: POLYCHROMASIA OCCASIONAL
--- NOTE | 2020-03-02 12:10 | NUR ---
HERE FOR WEEKLY POST CHEMO LABS. MISSED LAST WEEK D/T ONSET OF A "TERRIBLE HEAD COLD". REPORTS COLD SYMPTOMS MUCH IMPROVED. DENIES FEVER/CHILLS, DYSPNEA, N/V. DID REPORT A COUGH WITH YELLOWISH SPUTUM PRODUCTION BUT STATES THAT IS MUCH BETTER. HAD A SORE THROAT WHICH HAS RESOLVED. BIGGES COMPLAINT NOW IS WATERY DIARRHEA WHICH HE REPORTS COMES OUT LIKE "TURNING ON THE FAUCET". DENIES MUCOUS OR BLOOD IN STOOL. C/O ABD DISCOMFORT, "LIKE I HAVE THE FLU". REPORTS EATING/DRINKING WELL. NO LOSS OF TASTE OR SMELL. NO ONE ELSE SICK IN THE HOME. PT STARTED ON METFORMIN ALMOST 2 WEEKS AGO AND FEELS THE TIMING IS SUCH THAT THE DIARRHEA COULD BE ATTRIBUTED TO THAT. FEELING EXHAUSTED AND REQUESTING FLUIDS. NOTIFIED DR. WYNNE PER NURSE, SEPTEMBER, WITH ORDERS RECEIVED TO GIVE FLUIDS AND GET A COVID TEST. PT ONLY WANTED ONE OF THE TWO LITERS SO ONE LITER GIVEN. PT REPORTED FEELING MUCH BETTER AFTER THE FLUIDS. NOTIFIED DR. HORNE OF THE DIARRHEA AND REQUEST BY DR. WYNNE FOR PT TO RECEIVE A COVID TEST. NURSE, TODD, IS SETTING UP COVID HERE AT [facility]. PT INSTRUCTED ON THE DRIVE THROUGH PROCESS AND PLANS TO GO THERE DIRECTLY. TODD ALSO SET UP A TELEMED VISIT FOR PT AND DR. HORNE WHICH WILL TAKE PLACE LATER TODAY OR IN THE MORNING. PT VERBALIZES UNDERSTANDING OF THE PLAN. DISMISSED IN STABLE CONDITION. SCHEDULED TO RETURN AGAIN NEXT WEEK FOR LABS.
== END ==
LOC: OPONC 02-24 08:44
PROVIDERS: ATTEND Internal Medicine Hematology & Oncology
DX: R19.7 Diarrhea, unspecified (principal); C34.90 Malignant neoplasm of unspecified part of unspecified bronchus or lung

== ENCOUNTER → 2020-03-02 | Outpatient (CLI) | payer OTHER | LOC: LAB 11:24 | PROVIDERS: ATTEND Family Medicine | DX: Z20.828 Contact with and (suspected) exposure to other viral communicable diseases (principal) ==

== ENCOUNTER → 2020-03-09 | Outpatient (CLI) | payer OTHER ==
[2020-03-09 09:10] VITALS: BP 122/81
[2020-03-09 09:36] LABS: ABSOLUTE NEUTROPHILS 3.6 thou/uL (1.4-8.2); BASOPHILS 2.1 % (0.0-2.0); EOSINOPHILS 0.9 % (0.0-3.0); HEMATOCRIT 35.9 % (42.0-52.0); HEMOGLOBIN 11.9 gm/dL (14.0-18.0); LYMPHOCYTES 15.8 % (24.0-44.0); MCH 32.9 pg (26.0-34.0); MCHC 33.2 g/dL (28.0-37.0); MCV 99.2 fL (80.0-100.0); MONOCYTES 11.7 % (1.0-8.0); PLATELET COUNT 369 thou/uL (150-400); POLYS 69.5 % (36.0-66.0); RBC 3.62 mil/uL (4.50-6.00); RDW 18.8 % (10.5-14.5); WBC 5.1 thou/uL (4.0-11.0)
[2020-03-09 10:05] LABS: ALBUMIN 3.9 g/dL (3.4-5.0); CALCIUM 9.7 mg/dL (8.5-10.1); CREATININE 1.4 mg/dL (0.7-1.3); POTASSIUM 4.3 mmol/L (3.5-5.1); TOTAL BILIRUBIN 0.3 mg/dL (0.2-1.0); TOTAL PROTEIN 7.4 g/dL (6.4-8.2)
[2020-03-09 11:04] LABS: ANISOCYTOSIS 2+
--- NOTE | 2020-03-09 12:53 | NUR ---
HERE FOR WEEKLY CHEMO F/U LABS. COMPLETED LAST COURSE OF CHEMO 3 WEEKS AGO ON 02/11/20. DENIES N/V, FEVER/CHILLS. DIARRHEA CONTINUES, STILL QUITE LOOSE BUT PT STATES IT IS GETTING A LITTLE BETTER. LESS ABD DISCOMFORT. DENIES MUCOUS OR BLOOD IN STOOLS. PT STATES HE DID NOT END UP RECEIVING A TELE-HEALTH VISIT FROM DR. HORNE LAST WEEK WHICH I THOUGHT WAS SET UP FOR PATIENT. WILL CALL DR. HORNE'S OFFICE AGAIN THIS WEEK TO SEE IF THAT CAN BE DONE TO HELP PT MANAGE DIARRHEA. COVID TEST WAS DONE POST VISIT LAST WEEK AND WAS NEGATIVE. FATIGUE CONTINUES AND IS ONE OF PATIENT'S BIGGEST COMPLAINTS. PT IS SCHEDULED FOR HIS PET SCAN NEXT WEEK ON SAT. MANAGING SUGARS NOW WITH METFORMIN AND IS CHECKING FSBG DAILY--STATE LEVELS RUN FROM 80s-120 DEPENDING ON WHAT HE EATS. PORT ACCESSED PER PT REQUEST, LABS DRAWN, DEACCESSED. PT STATES IS BEING TESTED FOR COVID D/T FEVER AND FATIGUE. ENCOURAGED PT TO KEEP QUARANTINED FROM HER. DISMISSED IN STABLE CONDITION. WILL RETURN NEXT WEEK.
== END ==
LOC: OPONC 08:56
PROVIDERS: ATTEND Internal Medicine Hematology & Oncology
DX: C34.90 Malignant neoplasm of unspecified part of unspecified bronchus or lung (principal)

== ENCOUNTER → 2020-03-16 | Outpatient (CLI) | payer OTHER ==
--- NOTE | 2020-03-16 14:45 | NUR ---
PT HERE TODAY FOR A PET SCAN AND CAME TO THE INFUSION CLINIC TO HAVE HIS PORT ACCESSED PRIOR TO THE PROCEDURE. PORT ACCESSED WITH EASE, EXCELLENT BLOOD RETURN. PT RETUREND POST PET SCAN FOR PORT FLUSH AND DEACCESS. PT REPORTS DOING WELL, FEELING WELL OVERALL EXCEPT FOR CONTINUED LOW ENERGY AND FATIGUE. SEES DR. WYNNE ON SATURDAY FOR PET SCAN REPORT AND F/U PLAN. DISMISSED IN STABLE CONDITION. SCHEDULED TO RETURN IN 4 WEEKS FOR PORT FLUSH.
== END ==
LOC: OPONC 13:02
PROVIDERS: ATTEND Internal Medicine Hematology & Oncology
DX: C34.90 Malignant neoplasm of unspecified part of unspecified bronchus or lung (principal)

== ENCOUNTER → 2020-03-29 | Outpatient (CLI) | payer OTHER ==
[~2020-03-29] VITALS: Ht 167.6 cm; Wt 96.2 kg
[2020-03-29 08:46] VITALS: BP 118/94
[2020-03-29 08:50] LABS: ABSOLUTE NEUTROPHILS 3.4 thou/uL (1.4-8.2); BASOPHILS 1.1 % (0.0-2.0); EOSINOPHILS 2.6 % (0.0-3.0); HEMATOCRIT 35.4 % (42.0-52.0); HEMOGLOBIN 11.6 gm/dL (14.0-18.0); MCH 32.8 pg (26.0-34.0); MCHC 32.8 g/dL (28.0-37.0); MCV 99.9 fL (80.0-100.0); MONOCYTES 8.2 % (1.0-8.0); PLATELET COUNT 231 thou/uL (150-400); POLYS 74.1 % (36.0-66.0); RBC 3.55 mil/uL (4.50-6.00); RDW 16.1 % (10.5-14.5); WBC 4.6 thou/uL (4.0-11.0)
[2020-03-29 08:54] LABS: CALCIUM 8.9 mg/dL (8.5-10.1); CREATININE 1.4 mg/dL (0.7-1.3); POTASSIUM 4.3 mmol/L (3.5-5.1)
[2020-03-29 09:00] LABS: ALBUMIN 3.6 g/dL (3.4-5.0); MAGNESIUM 1.6 mg/dL (1.8-2.4); TOTAL BILIRUBIN 0.3 mg/dL (0.2-1.0); TOTAL PROTEIN 6.9 g/dL (6.4-8.2)
--- NOTE | 2020-03-29 11:29 | NUR ---
IN FOR CHEMOTHERAPY, TECENTRIQ, DOSE 1 OF 4, [id number] FOR SMALL CELL LUNG CA. PATIENT STATED FEELING OK. DENIED PAIN, FEVER, CHILLS, DIARRHEA. MAIN COMPLAINT IS FATIGUE AND WEAKNESS. PATIENT STATES HE HAS HIS DAYS AND NIGHTS MIXED UP, SLEEPING DURING THE DAY AND THEN AWAKE AT NIGHT. STATED APPETITE GOOD. AFEBRILE. AUDIBLE WHEEZING HEARD HOWEVER LUNGS MOSTLY CLEAR. POONAM BLOOD FROM PORTACATH WITHOUT DIFFICULTY. PER PARAMETERS ALL LAB RESULTS WNL AND OK TO GIVE TECENTRIQ. PREMED OF ZOFRAN 16MG PO GIVEN 30 MINUTES PRIOR TO TECENTRIQ. TECENTRIQ INFUSED OVER 40 MINUTES AND TOLERATED WELL. PATIENT SLEPT THROUGHOUT INFUSION. HEPARIN LOCKED PORTACATH AND DEACCESSED. TO RETURN APR. FOR #2 INFUSION. DISMISSED IN GOOD CONDITION.
== END ==
LOC: OPONC 08:28
PROVIDERS: ATTEND Internal Medicine Hematology & Oncology
DX: Z51.11 Encounter for antineoplastic chemotherapy (principal); C34.90 Malignant neoplasm of unspecified part of unspecified bronchus or lung; R53.83 Other fatigue; R53.1 Weakness

== ENCOUNTER → 2020-04-19 | Outpatient (CLI) | payer OTHER | LOC: LAB 12:34 | PROVIDERS: ATTEND Pediatrics | DX: Z01.812 Encounter for preprocedural laboratory examination (principal); Z20.828 Contact with and (suspected) exposure to other viral communicable diseases ==

== ENCOUNTER → 2020-04-20 | Outpatient (CLI) | payer OTHER ==
[~2020-04-20] VITALS: Ht 167.6 cm; Wt 94.3 kg
[2020-04-20 09:00] VITALS: BP 115/78
[2020-04-20 09:33] LABS: ABSOLUTE NEUTROPHILS 2.1 thou/uL (1.4-8.2); BASOPHILS 1.1 % (0.0-2.0); EOSINOPHILS 1.4 % (0.0-3.0); HEMATOCRIT 38.3 % (42.0-52.0); HEMOGLOBIN 12.7 gm/dL (14.0-18.0); LYMPHOCYTES 23.6 % (24.0-44.0); MCH 32.4 pg (26.0-34.0); MCHC 33.3 g/dL (28.0-37.0); MCV 97.4 fL (80.0-100.0); MONOCYTES 11.3 % (1.0-8.0); PLATELET COUNT 248 thou/uL (150-400); POLYS 62.6 % (36.0-66.0); RBC 3.93 mil/uL (4.50-6.00); RDW 14.9 % (10.5-14.5); WBC 3.4 thou/uL (4.0-11.0)
[2020-04-20 09:52] LABS: ALBUMIN 3.6 g/dL (3.4-5.0); CALCIUM 9.1 mg/dL (8.5-10.1); CREATININE 1.3 mg/dL (0.7-1.3); POTASSIUM 3.8 mmol/L (3.5-5.1); TOTAL BILIRUBIN 0.3 mg/dL (0.2-1.0); TOTAL PROTEIN 7.1 g/dL (6.4-8.2)
--- NOTE | 2020-04-20 12:00 | NUR ---
PT HERE FOR CYCLE 6 OF TECENTRIQ. REPORTS DOING WELL. STILL HAS UPPER AIRWAY CRACKLES BUT LUNGS MOSTLY CLEAR. DOES HAVE MILD EXERTIONAL DYSPNEA. STILL C/O FATIGUE AFTER TREATMENTS. DENIES N/V/DIARRHEA, PAIN, FEVER OR S/S INFECTION. NO CONCERNS NOTED. PORT ACCESSED WITH EXCELLENT BLOOD RETURN, LABS DRAWN. TOLERATED TECENTRIQ WITHOUT INCIDENT. PT WALKED TO RADIOLOGY FOR CT SCAN THEN WILL DISMISS HOME. SCHEDULED TO RETURN AGAIN IN 3 WEEKS.
== END ==
LOC: OPONC 04-19 16:01
PROVIDERS: ATTEND Internal Medicine Hematology & Oncology
DX: Z51.11 Encounter for antineoplastic chemotherapy (principal); C34.90 Malignant neoplasm of unspecified part of unspecified bronchus or lung; R53.83 Other fatigue

== ENCOUNTER → 2020-04-22 | Outpatient (CLI) | payer OTHER ==
[~2020-04-22] VITALS: Ht 167.6 cm; Wt 96.2 kg
[2020-04-22 12:19] VITALS: BP 130/92
--- NOTE | 2020-04-27 10:07 | PATH ---
[facility] [address] [place] [address] PATHOLOGY RPT PROCEDURE Name: MATTHEW ESCALANTE Room #: REG [facility] LuisMabel#: [id number] Admission: 04/22/20 Date of : 64 Discharge: Report #: [id number] Path Case #: [id number] Note LCA Accession Number: [id number] TESTS RESULT FLAG UNITS REF RANGE LAB Clinician Provided Cytology Information No. of containers..01 Other (Miscellaneous) Source: RUL BRUSHING DIAGNOSIS: 02 RUL BRUSHING NEGATIVE FOR MALIGNANT EPITHELIAL CELLS. NORMAL BRONCHIAL CELLS ARE PRESENT. THIS INTERPRETATION INCLUDES EVALUATION OF A CELL BLOCK. Pathologist ICD10: 02 R91.8 Signed out by: 02 Nessa Carroll MD, Pathologist NPI- [id number] Performed by: 01 Ernestina Pickering Clock And Watch Hands Dipper ([facility]) Gross description: 01 20ML, RED, 1TP 1CB /LCS 04/25/2020 1837 Local FLAG LEGEND: L-Low Normal,H-High Normal,LL-Alert Low,HH-Alert High <-Panic Low,>-Panic High,A-Abnormal,AA-Critical Abnormal Performed at: [address] [place] [address] Timothy Herrera MD, [address] [address] Nessa Carroll MD, Specimen Comment: A courtesy copy of this report has been sent to [phone] Specimen Comment: [phone] Specimen Comment: Report sent to / DR HORNE Specimen Comment: A duplicate report has been generated due to demographic updates. Performed at: [address], [place], [place] [id number] MD Timothy Herrera MD Phone: [phone]
--- NOTE | 2020-04-27 10:07 | PATH ---
[facility] [address] [place] [address] PATHOLOGY RPT PROCEDURE Name: MATTHEW ESCALANTE Room #: REG [facility] Luis.#: [id number] Admission: 04/22/20 Date of : 64 Discharge: Report #: [id number] Path Case #: [id number] Note LCA Accession Number: [id number] TESTS RESULT FLAG UNITS REF RANGE LAB Clinician Provided Cytology Information No. of containers..01 Other (Miscellaneous) Source: RUL BAL DIAGNOSIS: 02 RUL BAL NEGATIVE FOR MALIGNANT EPITHELIAL CELLS. REACTIVE BRONCHIAL CELLS ARE PRESENT. PULMONARY MACROPHAGES (DUST CELLS) ARE PRESENT. THIS INTERPRETATION INCLUDES EVALUATION OF A CELL BLOCK. Pathologist ICD10: 02 R91.8 Signed out by: 02 Nessa Carroll MD, Pathologist NPI- [id number] Performed by: Blake Pickering, Mechanical Product Engineer ([facility]) Gross description: 01 20ML, RED, 1TP 1CB /LCS 04/25/2020 1839 Local FLAG LEGEND: L-Low Normal,H-High Normal,LL-Alert Low,HH-Alert High <-Panic Low,>-Panic High,A-Abnormal,AA-Critical Abnormal Performed at: [address] [place] [address] Timothy Herrera MD, [address] [address] Nessa Carroll MD, Specimen Comment: A courtesy copy of this report has been sent to [phone] Specimen Comment: [phone] Specimen Comment: Report sent to Specimen Comment: A duplicate report has been generated due to demographic updates. Performed at: [address], [place], [place] [id number] [address] [address] PATHOLOGY RPT PROCEDURE Name: AVAMATTHEW Room #: REG ERIK Conde#: [id number] Admission: 04/22/20 Date of : 64 Discharge: Report #: [id number] Path Case #: [id number] MD Timothy Herrera MD Phone: [phone]
--- NOTE | 2020-04-27 10:07 | PATH ---
[facility] [address] [place] [address] PATHOLOGY RPT PROCEDURE Name: MATTHEW ESCALANTE [facility] [id number] Admission: 04/22/20 Date of : 64 Discharge: Report #: [id number] Path Case #: [id number] Note LCA Accession Number: [id number] TESTS RESULT FLAG UNITS REF RANGE LAB Clinician Provided Cytology Information No. of containers..01 Other (Miscellaneous) Source: RUL FNA DIAGNOSIS: 02 RUL FNA NEGATIVE FOR MALIGNANT EPITHELIAL CELLS. NORMAL BRONCHIAL CELLS ARE PRESENT. THIS INTERPRETATION INCLUDES EVALUATION OF A CELL BLOCK. Pathologist ICD10: 02 R91.8 Signed out by: 02 Nessa Carroll MD, Pathologist NPI- [id number] Performed by: 01 Ernestina Pickering Lockstitch Cup Setter ([facility]) Gross description: 01 12ML, RED, 2 FX /LCS 04/25/2020 1829 Local FLAG LEGEND: L-Low Normal,H-High Normal,LL-Alert Low,HH-Alert High <-Panic Low,>-Panic High,A-Abnormal,AA-Critical Abnormal Performed at: [address] [place] [address] Timothy Herrera MD, [address] [address] Nessa Carroll MD, Specimen Comment: A courtesy copy of this report has been sent to [phone] Specimen Comment: [phone] Specimen Comment: Report sent to / DR HORNE Specimen Comment: A duplicate report has been generated due to demographic updates. Performed at: [address], [place], [place] [id number] MD Timothy Herrera MD Phone: [phone]
--- NOTE | 2020-04-27 11:07 | PATH ---
[facility] [address] [facility] [place] [address] PATHOLOGY RPT PROCEDURE Name: MATTHEW ESCALANTE Room #: REG [facility].#: [id number] Admission: 04/22/20 Date of : 64 Discharge: Report #: [id number] Path Case #: [id number] Note LCA Accession Number: [id number] TESTS RESULT FLAG UNITS REF RANGE LAB Clinician Provided Cytology Information No. of containers..01 Other (Miscellaneous) Source: RUL FNA SPOT 2 DIAGNOSIS: RUL FNA SPOT 2 INADEQUATE, INSUFFICIENT CELLS FOR STUDY. SPECIMEN CONSISTS OF BLOOD ONLY. THIS INTERPRETATION INCLUDES EVALUATION OF A CELL BLOCK. Pathologist ICD10: 02 R91.8 Signed out by: 02 Nessa Carroll MD, Pathologist NPI- [id number] Performed by: 01 Ernestina Pickering Mining Machinery Assembler ([facility]) Gross description: 01 12ML, RED, 1CB /LCS 04/25/2020 1842 Local FLAG LEGEND: L-Low Normal,H-High Normal,LL-Alert Low,HH-Alert High <-Panic Low,>-Panic High,A-Abnormal,AA-Critical Abnormal Performed at: [address] [place] [address] Timothy Herrera MD, [address] [address] Nessa Carroll MD, Specimen Comment: A courtesy copy of this report has been sent to [phone] Specimen Comment: [phone] Specimen Comment: Report sent to / DR HORNE Specimen Comment: A duplicate report has been generated due to demographic updates. Performed at: [address], [place], [place] [id number] MD Timothy Herrera MD Phone: [phone]
== END | disposition home or self-care (01) ==
LOC: PUL 09:50
PROVIDERS: ATTEND Pediatrics
DX: R91.8 Other nonspecific abnormal finding of lung field (principal); I10 Essential (primary) hypertension; E11.9 Type 2 diabetes mellitus without complications; E78.00 Pure hypercholesterolemia, unspecified; I25.2 Old myocardial infarction; Z87.442 Personal history of urinary calculi; Z85.118 Personal history of other malignant neoplasm of bronchus and lung; Z98.890 Other specified postprocedural states; Z79.899 Other long term (current) drug therapy; Z87.891 Personal history of nicotine dependence; Z87.19 Personal history of other diseases of the digestive system; Z86.718 Personal history of other venous thrombosis and embolism; Z79.01 Long term (current) use of anticoagulants; Z88.8 Allergy status to other drugs, medicaments and biological substances
CPT/HCPCS: 50010; 62110; 62900; 70005

== ENCOUNTER → 2020-05-11 | Outpatient (CLI) | payer OTHER ==
[2020-05-11 09:11] LABS: ABSOLUTE NEUTROPHILS 2.1 thou/uL (1.4-8.2); BASOPHILS 1.9 % (0.0-2.0); EOSINOPHILS 1.6 % (0.0-3.0); HEMATOCRIT 38.7 % (42.0-52.0); HEMOGLOBIN 12.8 gm/dL (14.0-18.0); LYMPHOCYTES 20.7 % (24.0-44.0); MCH 32.1 pg (26.0-34.0); MCHC 33.1 g/dL (28.0-37.0); MONOCYTES 11.4 % (1.0-8.0); PLATELET COUNT 241 thou/uL (150-400); POLYS 64.4 % (36.0-66.0); RBC 3.99 mil/uL (4.50-6.00); RDW 14.1 % (10.5-14.5); WBC 3.2 thou/uL (4.0-11.0)
[2020-05-11 09:13] VITALS: BP 120/89
[2020-05-11 09:29] LABS: ALBUMIN 3.3 g/dL (3.4-5.0); CALCIUM 8.9 mg/dL (8.5-10.1); CREATININE 1.2 mg/dL (0.7-1.3); MAGNESIUM 1.9 mg/dL (1.8-2.4); POTASSIUM 3.8 mmol/L (3.5-5.1); TOTAL BILIRUBIN 0.2 mg/dL (0.2-1.0)
[2020-05-11 09:44] LABS: TOTAL PROTEIN 6.7 g/dL (6.4-8.2)
--- NOTE | 2020-05-11 12:00 | NUR ---
HERE FOR DAY 1, CYCLE 7 OF CHEMO: TECENTRIQ. REPORTS DOING WELL, FEELING WELL OTHER THAN FATIGUE WHICH, IN GENERAL, IS IMPROVING PER PT. DENIES ANY NOTED SIDE EFFECTS FROM TREATMENT INCLUDING COLITIS, VISION CHANGES, ENDOCRINOPATHIES, N/V, INFECTION, ETC. JUST FATIGUE. PORT ACCESSED, EXCELLENT BLOOD RETURN BEFORE AND AFTER CHEMO GIVEN. LABS WERE DRAWN, PT MET CRITERIA FOR TREATMENT. TOLERATED WITHOUT INCIDENT. DISMISSED IN STABLE CONDITION. LAST TREATMENT SCHEDULED FOR 06/01/19.
== END ==
LOC: OPONC 08:49
PROVIDERS: ATTEND Internal Medicine Hematology & Oncology
DX: Z51.11 Encounter for antineoplastic chemotherapy (principal); C34.90 Malignant neoplasm of unspecified part of unspecified bronchus or lung; R53.83 Other fatigue

== ENCOUNTER → 2020-06-01 | Outpatient (CLI) | payer OTHER ==
[2020-06-01 09:17] LABS: ABSOLUTE NEUTROPHILS 3.5 thou/uL (1.4-8.2); EOSINOPHILS 0.8 % (0.0-3.0); HEMATOCRIT 41.2 % (42.0-52.0); HEMOGLOBIN 13.6 gm/dL (14.0-18.0); LYMPHOCYTES 17.8 % (24.0-44.0); MCH 31.5 pg (26.0-34.0); MCV 95.4 fL (80.0-100.0); MONOCYTES 9.7 % (1.0-8.0); PLATELET COUNT 272 thou/uL (150-400); POLYS 70.7 % (36.0-66.0); RBC 4.32 mil/uL (4.50-6.00); RDW 13.8 % (10.5-14.5)
[2020-06-01 09:22] LABS: CREATININE 1.3 mg/dL (0.7-1.3); POTASSIUM 3.9 mmol/L (3.5-5.1)
[2020-06-01 09:28] LABS: ALBUMIN 3.3 g/dL (3.4-5.0); MAGNESIUM 1.8 mg/dL (1.8-2.4); TOTAL BILIRUBIN 0.2 mg/dL (0.2-1.0)
[2020-06-01 10:24] VITALS: BP 114/85
--- NOTE | 2020-06-01 11:45 | NUR ---
PT HERE FOR CYCLE 8, FINAL CYCLE, LAST DOSE OF TECENTRIQ. REPORTS DOING WELL EXCEPT ONGOING FATIGUE. PORT ACCESSED, LABS DRAWN, MEETS PARAMETERS FOR CHEMO TODAY. PREMED GIVEN, TOLERATED TECENTRIQ INFUSION PER PORT WITHOUT INCIDENT, EXCELLENT BLOOD RETURN FROM PORT. REVIEWED PLAN WITH PT TO RETURN MONTHLY FOR PORT MAINTENANCE AND TO CALL DR. WYNNE'S OFFICE TO SET UP A F/U APPT. DISMISSED IN STABLE CONDITION.
== END ==
LOC: OPONC 07:54
PROVIDERS: ATTEND Internal Medicine Hematology & Oncology
DX: Z51.11 Encounter for antineoplastic chemotherapy (principal); C34.90 Malignant neoplasm of unspecified part of unspecified bronchus or lung